=== PATIENT | female | born 1940 | race Caucasian/White ===

== ENCOUNTER 2016-09-25 13:36 | Inpatient (IN) ==
[2016-09-25] MEDS ORDERED: DILTIAZEM 50 MG/10 ML VIAL IV ONE (14:18)
[2016-09-25] MEDS: DILTIAZEM INJ 100 MG in SODIUM CHLORIDE 0.9% 100 ML IV SCH (14:23)
[2016-09-25] MEDS ORDERED: SODIUM CHLORIDE 0.9% 100 ML IV ONE (14:23)
[2016-09-25] MEDS ORDERED: DILTIAZEM 100 MG VIAL.ADD IV ONE (14:23)
[2016-09-25] MEDS ORDERED: ENOXAPARIN 80 MG/0.8 ML SYRINGE SUBCUT STA (14:28)
--- NOTE | 2016-09-25 14:28 | XRay Report ---
Portable chest Date: 09/25/2016 Clinical history: Shortness of breath, new onset of atrial fibrillation Comparison: 09/25/2016 Technique: Portable AP sitting chest Findings: The heart is minimally enlarged. Minimal diffuse perihilar parenchymal findings are noted with prominent vasculature. Osteopenia with degenerative changes. Postoperative findings in the left upper quadrant. Impression: Cardiomegaly with borderline/mild CHF. PROCEDURE INTERPRETED AT [facility], [place] DEPARTMENT OF RADIOLOGY Final Report Signed by: Dr. Natalya Cardenas
[2016-09-25 14:31] LABS: Basophils # 0.1 10*3/uL (0.0-0.2); Basophils % 0.7 % (0.0-0.8); Eosinophils # 0.4 10*3/uL (0.0-0.87); Eosinophils % 4.1 % (0.00-10.9); Hematocrit 42.9 VOL% (35.7-47.0); Hemoglobin 13.9 GM/DL (12.0-16.0); Immature Granulocytes % 0.3 %; Immature Granulocytes Absolute 0.03 #; Lymphocytes # 2.4 10*3/uL (1.4-4.0); Lymphocytes % 26.2 % (21.3-54.2); Mean Corpuscular HGB Conc 32.4 GM/DL (32-36); Mean Corpuscular Hemoglobin 27 PG (27-34); Mean Corpuscular Volume 82.3 FL (87-102); Monocytes # 0.7 10*3/uL (0.11-0.8); Monocytes % 7.2 % (1.7-12.7); Neutrophils # 5.6 10*3/uL (1.4-7.4); Neutrophils % 61.5 % (38.7-73.9); Platelet Count 299 T/CUMM (130-400); Red Blood Count 5.21 MC/CUMM (3.8-5.5); Red Cell Distribution Width 15.7 % (9.3-17.3); White Blood Count 9.1 T/CUMM (4-12)
[2016-09-25 14:47] LABS: Alanine Aminotransferase 16 U/L (13-56); Albumin 3.5 G/DL (3.4-5.0); Alkaline Phosphatase 80 U/L (45-117); Aspartate Amino Transferase 21 U/L (0-37); Blood Urea Nitrogen 9 MG/DL (7-18); Glucose 103 MG/DL (74-106); Magnesium 2.2 MG/DL (1.8-2.4); Osmolality,Calculated 279.3 MOS/KG (273-304); Potassium 4.5 MMOL/L (3.5-5.1); Sodium 141 MMOL/L (136-145); Total Protein 6.7 G/DL (6.4-8.3); Troponin I Only < 0.015 NG/ML (0.00-0.045)
--- NOTE | 2016-09-25 14:50 | Emergency Department Note ---
Arrival - Arrival Chief Complaint: Arrhythmia/Palpitations Stated Complaint: afib, sent by dr. MORALES Nursing Triage Note: c/o being evaluated today by Kiley Saeed for espohagus problems., states that she was told that she had a new onset of A-Fib ,ekg obtained at time of triage Mode of Arrival: Ambulatory Limitations: No Limitations Source: Patient, Family, RN Notes Reviewed Time Seen by Provider: 09/25/16 14:25 - History of Present Illness HPI Narrative: The patient was seen today in the clinic for what was presumed to be an esophagus problem. She was found to be in atrial fibrillation and was sent here. Patient has a history of gastric bypass many years ago and has had a esophagus spasm problems since then. For 3 weeks she has had a fluttering feeling in her chest which she presumed was her esophagus. She has also had increased dyspnea on exertion and some swelling in her lower extremities. She denies any chest pain, nausea, vomiting or diaphoresis. She has no history of CHF, CAD or atrial fibrillation. She was seen by Dr. Langley several years ago and had a stress test which was negative. She does have a history of a heart murmur. Allergies/Adverse Reactions: Allergies Allergy/AdvReac Type Severity Reaction Status Date / Time codeine Allergy RASH Verified 09/25/16 13:52 [place] Allergy RASH Verified 09/25/16 13:52 Home Medications: Home Medications Medication Instructions Recorded Confirmed Type Amoxicillin 500 mg PO TID 09/25/16 09/25/16 History Anastrozole 1 mg PO DAILY 09/25/16 09/25/16 History Aspirin EC Tab 81 mg PO DAILY 09/25/16 09/25/16 History Brimonidine 0.2% Oph Soln 1 drop BOTH EYES BID 09/25/16 09/25/16 History [Alphagan P 0.2% Oph Soln] Calcium Carbonate 600 mg PO BID 09/25/16 09/25/16 History Celecoxib [Celebrex] 200 mg PO DAILY 09/25/16 09/25/16 History Cinnamon Bark [Cinnamon] 500 mg PO BID 09/25/16 09/25/16 History Cyanocobalamin (Vitamin B-12) 2,500 mcg PO DAILY 09/25/16 09/25/16 History [Vitamin B12] Dexlansoprazole [Dexilant] 60 mg PO DAILY 09/25/16 09/25/16 History Esomeprazole Magnesium [Nexium] 20 mg PO DAILY 09/25/16 09/25/16 History Gluc Vaughan/Chondro Vaughan A/Vit C/Mn 1 each PO DAILY 09/25/16 09/25/16 History [Glucosamine Chondroitin Tab] Lisinopril [Prinivil] 20 mg PO DAILY 09/25/16 09/25/16 History Methylcellulose Tab [Citrucel Tab] 1 tablet PO BID 09/25/16 09/25/16 History NIFEdipine [Nifedipine ER] 30 mg PO DAILY 09/25/16 09/25/16 History [place]-3S/Dha/Epa/Fish Oil [Fish 1 each PO DAILY 09/25/16 09/25/16 History Oil 1,200 mg Softgel] Ranitidine Tab [Zantac Tab] 150 mg PO DAILY 09/25/16 09/25/16 History Temazepam 15 mg PO BEDTIME 09/25/16 09/25/16 History Timolol Maleate [Timolol 0.25% Oph 1 drop BOTH EYES BID 09/25/16 09/25/16 History Soln] Travoprost 0.004% Oph Soln 1 drop BOTH EYES BEDTIME 09/25/16 09/25/16 History [Travatan Z] Vitamin E 400 unit PO DAILY 09/25/16 09/25/16 History Review of System - Review of System 12 point system: reviewed and no additional remarkable complaints except as stated - Review of System Constitutional: Absent: diaphoresis, fever, weakness Head/Ears/Nose/Throat: Present: other ("Sinus congestion). Absent: nasal drainage, sore throat Respiratory: Present: cough. Absent: respiratory distress, wheezing Cardiovascular: Present: palpitations, dyspnea on exertion, edema. Absent: chest pain, orthopnea, syncope Gastrointestinal: Absent: abdominal pain, nausea, vomiting Neurological: Present: headache Medical,Surgical,& Family Hx - Medical History Cardio: History of: Hypertension Gastrointestinal: History of: GERD Reproductive: History of: Breast Cancer - Surgical History Abdominal Surgeries: Surgical HX of: Abdominal Surgery (Gastric bypass) Reproductive Surgeries: Surgical HX of;: Breast Surgery Orthopedic Surgeries: Surgical HX of;: Total Hip Replacement, Total Knee Replacement - Family History Family History: Reports;: Family Heart Disease (Brother with atrial fibrillation ) - Social History Smoking Status: Never smoker Frequency of Alcohol Use: None Type of Drug Use: None Exam Physical Examination: GENERAL: Alert. No acute distress. HEENT: Normocephalic and atraumatic. There is no nasal drainage. No pharyngeal erythema or exudate. NECK: Normal inspection. Supple. No lymphadenopathy or meningismus. LUNGS: No respiratory distress. Clear to auscultation bilaterally, no wheezes, rales or rhonchi. HEART: Irregularly irregular tachycardia. 2 out of 6 systolic murmur. ABDOMEN: Soft, nontender and nondistended with normoactive bowel sounds. BACK: Normal inspection. SKIN: Color normal. Warm and dry. EXTREMITIES: Nontender. Normal range of motion. No pedal edema. NEUROLOGICAL/PSYCHIATRIC: Alert and oriented -3 with normal mood and affect. Cranial nerves normal. No motor or sensory deficit. Vital Signs: Vital Signs Temperature 97.7 F 09/25/16 14:44 Pulse Rate 117 H 09/25/16 14:44 Respiratory Rate 18 09/25/16 14:44 Blood Pressure 123/98 09/25/16 14:44 O2 Sat by Pulse Oximetry 97 09/25/16 13:47 Course - Reevaluation(s) Reevaluation #1: The patient feels much better after diltiazem. Her rate is still around 115. Enzymes are negative. BNP is 131 and x-ray shows mild CHF. I have discussed patient with Dr. Lua and will admit to him. We will keep her n.p.o. after midnight for possible cardioversion in the morning. Time: 18:26 Results - Labs CBC & BMP: 09/25/16 14:16 09/25/16 14:16 Lab Results: I have reviewed the patients labs Labs: Laboratory Tests 09/25/16 14:16 Magnesium 2.2 Total Bilirubin 0.50 AST 21 ALT 16 Alkaline Phosphatase 80 Total Creatine Kinase 67 CK-MB (CK-2) 1.6 Troponin I < 0.015 Laboratory Tests 09/25/16 14:16 B-Natriuretic Peptide 191 H - Impressions Chest x-ray shows cardiomegaly with mild CHF. EKG shows atrial fibrillation with RVR at 146. Disposition Clinical Impression: Atrial fibrillation Case discussed with: patient Disposition: Still a Patient Condition: Stable Time of Disposition: 18:27
--- NOTE | 2016-09-25 15:25 | EKG Report ---
Stationary ECG Study [facility] ER Test Date: 09/25/2016 1:50:14 PM Pat Name: LISETTE WOODS Department: Room: Gender: F International Recruiter: Ciro John : 1940 Requested by: Caty Celeste Order Number: [id number] Reading MD: ANNALEE CHO Intervals [place] Rate: 146 P: 999 VA: 0 QRS: -48 QRSD: 91 T: 46 QT: 296 QTc: 380 Interpretive Statements ATRIAL FIBRILLATION WITH RAPID VENTRICULAR RESPONSE CONSISTENT WITH PULMONARY DISEASE MINIMAL ST DEPRESSION Electronically Signed On 09-25-16 19:29:06 CDT by ANNALEE CHO [email or web address]
[2016-09-25] MEDS ORDERED: ENOXAPARIN 80 MG/0.8 ML SYRINGE SUBCUT ONE (16:42)
[2016-09-25] MEDS ORDERED: MAGNESIUM SULF RIDER 2 GM in PREMIX 1 EACH IV PRN (20:54)
[2016-09-25] MEDS ORDERED: ONDANSETRON 4 MG/2 ML VIAL IV PRN (20:54)
[2016-09-25] MEDS ORDERED: MAGNESIUM SULF RIDER 4 GM in PREMIX 1 EACH IV PRN (20:54)
[2016-09-25] MEDS: ACETAMINOPHEN 500 MG TABLET PO PRN (22:58)
[2016-09-25] MEDS: ZALEPLON 5 MG CAPSULE PO PRN (22:58)
[2016-09-26] MEDS ORDERED: ENOXAPARIN 100 MG/ML SYRINGE SUBCUT SCH (05:00)
[2016-09-26] MEDS: DILTIAZEM INJ 100 MG in SODIUM CHLORIDE 0.9% 100 ML IV SCH (05:03)
[2016-09-26] MEDS: ACETAMINOPHEN 500 MG TABLET PO PRN (06:06)
--- NOTE | 2016-09-26 08:11 | EKG Report ---
Stationary ECG Study [facility] Test Date: 09/26/2016 8:10:26 AM Pat Name: LISETTE WOODS Department: Room: 263 Gender: F Staff Trainer: PRICILLA : 1940 Requested by: Whit Gaytan Order Number: [id number] Reading MD: EUN FLORES Intervals [place] Rate: 115 P: 999 NM: 0 QRS: 28 QRSD: 94 T: -33 QT: 369 QTc: 437 Interpretive Statements ATRIAL FIBRILLATION WITH RAPID VENTRICULAR RESPONSE INDETERMINATE AXIS LOW QRS VOLTAGE IN PRECORDIAL LEADS POSSIBLE ANTERIOR MYOCARDIAL INFARCTION, PROBABLY OLD ABNORMAL RHYTHM ECG Electronically Signed On 09-26-16 14:02:34 CDT by EUN FLORES [email or web address]
--- NOTE | 2016-09-26 08:19 | Cardiology History & Physical ---
Assessment and Plan - Time spent with patient Time spent with patient: Greater than 30 minutes (1) New onset atrial fibrillation Status: Acute Assessment and plan: See plan of care listed below. Current Visit: Yes (2) Congestive heart failure Status: Acute Assessment and plan: See plan of care listed below. Current Visit: Yes Qualifiers: Congestive heart failure type: diastolic Congestive heart failure chronicity: acute Qualified Code(s): I50.31 - Acute diastolic (congestive) heart failure (3) Hypertension Status: Chronic Assessment and plan: See plan of care listed below. Current Visit: Yes (4) History of breast cancer Status: Chronic Assessment and plan: See plan of care listed below. Current Visit: Yes (5) Obesity Status: Chronic Assessment and plan: See plan of care listed below. Current Visit: Yes (6) Former smoker Status: Chronic Assessment and plan: See plan of care listed below. Current Visit: Yes (7) Sleep apnea, unspecified Status: Chronic Assessment and plan: See plan of care listed below. Current Visit: Yes History of Present Illness Chief complaint: New onset A. fib History of present illness: Web Sizer: Ms. Abdullahi is a 75 year old female without known history of coronary artery disease, not routinely followed by cardiology. Patient has cardiac risk factors significant for hypertension, advanced age, obesity, sedentary lifestyle and former smoker (quit in 1983). Patient denies significant family history of coronary artery disease. Patient has past medical history of GERD, esophageal spasm, breast cancer (now in remission) and gastric bypass 30 years ago. Patient reports that she had seen Dr. Jason Langley several years ago in underwent cardiac stress test approximately 3 years ago which was normal per her report. No report found in EMR. Patient reports that she has never undergone heart catheterization. Patient was seen by nurse practitioner in the clinic yesterday. She was noted to be in an irregular rhythm with rapid ventricular response. Subsequently, she was sent to the emergency department to be further evaluated. She reports a heart fluttering and palpitations for at least 2 months. She does have a history of esophageal spasm and she thought this was causing the fluttering in her chest. However, she was noted to be in an irregular rhythm yesterday all being seen by a RAILROAD COOK in the clinic. Accompanied with shortness of breath and dyspnea on exertion. She also confirms orthopnea, PND and lower extremity edema. She denies accompanied chest pain, heaviness and tightness. She reports that she does not have any contraindications to anticoagulation. On arrival to the emergency department, patient was noted to be in atrial fibrillation with rapid ventricular response. Subsequently, she was admitted under cardiology's service and housed on the telemetry unit. Of note, patient does have symptoms concerning for obstructive sleep apnea. She confirms loud snoring. Her and her can no longer sleep in the same room due to her snoring. She is also obese and confirms excessive daytime sleepiness. I will consult Dr. White to further evaluate this. Patient was seen and examined on the telemetry unit. She continues to be in atrial fibrillation. Currently on diltiazem drip at 15 mg an hour. Heart rate is stable ranging from 100-110. She is without complaints of chest pain, heaviness and tightness. She reports that her shortness of breath has slightly improved. Cardiac biomarkers have been negative 1. EKG reveals atrial fibrillation. Chest x-ray reveals cardiomegaly with mild CHF. BNP only mildly elevated at 191. Echocardiogram has been ordered and is currently pending. Electrolytes are stable with magnesium of 2.2 and potassium of 4.5. This is new onset atrial fibrillation. From patient's history, it appears that patient has been going in and out of this irregular rhythm for a couple of months now. Currently receiving IV diltiazem. Rate is stable ranging from 100-110. I will attempt to transition patient to p.o. diltiazem today. Add beta blockade when her blood pressure will allow. She denies any contraindications to anticoagulation. Chads vasc score of 4. Patient will need chronic anticoagulation at discharge. She received therapeutic dose of Lovenox in the emergency department. Continue aspirin. I will discuss with Dr. Lua and await his additional recommendations. ASSESSMENT/PLAN 1. NEW ONSET ATRIAL FIBRILLATION - This is new onset atrial fibrillation. Electrolytes are stable. Will check TSH and free T4. From patient's history, it appears that patient has been going in and out of this irregular rhythm for a couple of months now. Currently receiving IV diltiazem. Rate is stable ranging from 100-110. I will attempt to transition patient to p.o. diltiazem today. Add beta blockade when her blood pressure will allow. She denies any contraindications to anticoagulation. Chads vasc score of 4. Patient will need chronic anticoagulation at discharge. She received therapeutic dose of Lovenox in the emergency department. Continue aspirin. I will discuss with Dr. Lua and await his additional recommendations. 2. ACUTE CONGESTIVE HEART FAILURE - Suspect that this is secondary to diastolic dysfunction/underlying atrial fibrillation with rapid ventricular response. Echocardiogram is pending. At this point, I will add IV Lasix. Monitor strict I's and O's and daily weights. Patient may require further cardiac workup pending the results of her echocardiogram. I will discuss with Dr. Lua and await his additional recommendations. 3. HYPERTENSION -clinically stable at present. I will adjust her medications in order to provide better coverage for her high blood pressure as well as atrial fibrillation. I will change Procardia to diltiazem and attempt to add beta blockade when her blood pressure will allow. 4. OBESITY - I have encouraged weight loss by dietary restriction and regular exercise. 5. FORMER SMOKER - Reports that she quit smoking in 1983. 6. GERD - Continue PPI. 7. HISTORY OF BREAST CANCER - Stable at present. Now in remission. 8. POSSIBLE SLEEP APNEA - Patient does have symptoms concerning for obstructive sleep apnea. This could very wel be contributing to her underlying l s atrial fibrillation. He confirms loud snoring. Her and her can no longer sleep in the same room due to her snoring. She is also obese and confirms excessive daytime sleepiness. I will consult Dr. White to further evaluate this. Home Medications Medication Instructions Recorded Confirmed Type Anastrozole 1 mg PO DAILY 09/25/16 09/25/16 History Aspirin EC Tab 81 mg PO DAILY 09/25/16 09/25/16 History Brimonidine 0.2% Oph Soln 1 drop BOTH EYES BID 09/25/16 09/25/16 History [Alphagan P 0.2% Oph Soln] Calcium Carbonate 600 mg PO BID 09/25/16 09/25/16 History Celecoxib [Celebrex] 200 mg PO DAILY 09/25/16 09/25/16 History Cinnamon Bark [Cinnamon] 500 mg PO BID 09/25/16 09/25/16 History Cyanocobalamin (Vitamin B-12) 2,500 mcg PO DAILY 09/25/16 09/25/16 History [Vitamin B12] Dexlansoprazole [Dexilant] 60 mg PO DAILY 09/25/16 09/25/16 History Gluc Vaughan/Chondro Vaughan A/Vit C/Mn 1 each PO DAILY 09/25/16 09/25/16 History [Glucosamine Chondroitin Tab] Lisinopril [Prinivil] 20 mg PO DAILY 09/25/16 09/25/16 History Methylcellulose Tab [Citrucel Tab] 1 tablet PO BID 09/25/16 09/25/16 History NIFEdipine [Nifedipine ER] 30 mg PO DAILY 09/25/16 09/25/16 History [place]-3S/Dha/Epa/Fish Oil [Fish 1 each PO DAILY 09/25/16 09/25/16 History Oil 1,200 mg Softgel] Temazepam 15 mg PO BEDTIME 09/25/16 09/25/16 History Timolol Maleate [Timolol 0.25% Oph 1 drop BOTH EYES BID 09/25/16 09/25/16 History Soln] Travoprost 0.004% Oph Soln 1 drop BOTH EYES BEDTIME 09/25/16 09/25/16 History [Travatan Z] Vitamin E 400 unit PO DAILY 09/25/16 09/25/16 History Allergies Allergy/AdvReac Type Severity Reaction Status Date / Time codeine Allergy RASH Verified 09/25/16 13:52 [place] Allergy RASH Verified 09/25/16 13:52 - Constitutional Constitutional: Present: as per HPI, daytime sleepiness, fatigue. Absent: chills, fever(s), weakness - Cardiovascular Cardiovascular: Present: as per HPI, dyspnea, dyspnea on exertion, edema, orthopnea, palpitations, PND. Absent: chest pain at rest, chest pain with activity, claudication, diaphoresis, radiating jaw, neck or arm pain, lightheadedness - Respiratory Respiratory: Present: as per HPI, dyspnea, dyspnea on exertion, wheezing, snoring. Absent: hemoptysis, pain on inspiration, change in phlegm color - Neurological Neurological: Absent: abnormal gait, abnormal speech, behavioral changes, dizziness, syncope Medical,Surgical,& Family Hx - Medical History Cardio: History of: Hypertension Gastrointestinal: History of: GERD Reproductive: History of: Breast Cancer - Surgical History Abdominal Surgeries: Surgical HX of: Abdominal Surgery (Gastric bypass) Reproductive Surgeries: Surgical HX of;: Breast Surgery Orthopedic Surgeries: Surgical HX of;: Total Hip Replacement, Total Knee Replacement - Social History Smoking Status: Former smoker Frequency of Alcohol Use: None Type of Drug Use: None Marital Status: Lives With:: Spouse Functional capacity: independent ambulation Cardiology Physical Exam - Constitutional Vitals: Vital Signs Temp Pulse Resp BP Pulse Ox 97.6 F 78 20 119/92 97 09/26/16 08:00 09/26/16 08:00 09/26/16 08:00 09/26/16 08:00 09/26/16 08:00 Intake and Output 09/25/16 09/26/16 09/26/16 22:59 06:59 14:59 Intake Total 360 / 360 100.0 / 100.0 Output Total 350 / 350 Balance 360 / 360 -250.0 / -250.0 Intake: IV 0 / 0 100.0 / 100.0 Cardizem Inj 100 mg In Ns 0 / 0 100.0 / 100.0 100 ml @ 5 MG/HR 5 mls/ hr IV TITRATE DOLLY Rx#: [id number] Oral 360 / 360 Output: Urine 350 / 350 Other: Voiding Method Toilet Toilet # Voids 1 # Bowel Movements 0 0 Weight 215 lb 215 lb Exam: General: Appears well with no apparent distress. Pleasant and cooperative. Appears comfortable. HEENT: PERRL, normocephalic, atraumatic. Mucous membranes moist. No jaundice noted. Conjunctiva moist and clear, sclerae anicteric Neck: No JVD/HJR, no thyromegaly or lymphadenopathy noted. Cardiac: Irregular rhythm. Soft systolic murmur Lungs: Clear to auscultation without accessory muscle use to assist the respiratory pattern. Oxygen via nasal cannula Abdomen: Soft, bowel sounds normoactive. Nontender and nondistended. No abdominal bruit or thrill noted. No masses noted. Extremities: No clubbing, cyanosis noted. Trace edema to bilateral lower extremity. Upper extremity pulses 2+. Lower extremity pulses 2+. Capillary refill less than 3 seconds. Skin: No unusual lesions or rashes. No skin breakdown appreciated. Neuro: Awake, alert and oriented 3. Moves all extremities well without hemiparesis or paralysis. No essential tremor is appreciated. Result/EKG - Labs CBC & BMP: 09/25/16 14:16 09/25/16 14:16 Lab Results: I have reviewed the past 24 hour labs Labs: Laboratory Results - last 24 hr 09/25/16 09/25/16 09/25/16 14:16 14:16 14:16 WBC 9.1 RBC 5.21 Hgb 13.9 Hct 42.9 MCV 82.3 L MCH 27 MCHC 32.4 RDW 15.7 Plt Count 299 MPV 10.0 Neut % (Auto) 61.5 Lymph % (Auto) 26.2 [place] % (Auto) 7.2 Eos % (Auto) 4.1 Baso % (Auto) 0.7 Neut # (Auto) 5.6 Lymph # (Auto) 2.4 [place] # (Auto) 0.7 Eos # (Auto) 0.4 Baso # (Auto) 0.1 Immature Gran % 0.3 Nucleated RBC % 0.0 Immature Gran # 0.03 Nucleated RBCs # 0.00 Immature Plt Fraction 0.0 Sodium 141 Potassium 4.5 Chloride 110 H Carbon Dioxide 24 Anion Gap 11.5 BUN 9 Creatinine 0.60 GFR Calculation 105 BUN/Creatinine Ratio 15.00 Glucose 103 Calculated Osmolality 279.3 Calcium 9.0 Magnesium 2.2 Total Bilirubin 0.50 AST 21 ALT 16 Alkaline Phosphatase 80 Total Creatine Kinase 67 CK-MB (CK-2) 1.6 Troponin I < 0.015 B-Natriuretic Peptide 191 H Total Protein 6.7 Albumin 3.5 Globulin 3.2 Albumin/Globulin Ratio 1.0 L - EKG EKG results: interpreted by me EKG shows: atrial fibrillation
[2016-09-26] MEDS ORDERED: NON-FORMULARY MEDICATION (Dexlansoprazole [Dexilant] 60 MG) PO SCH (09:00)
[2016-09-26] MEDS ORDERED: GLUCOSAMINE 500 MG TABLET PO SCH (09:00)
[2016-09-26] MEDS ORDERED: FUROSEMIDE 40 MG/4 ML VIAL IV SCH ×2 (09:00→16:00)
[2016-09-26] MEDS ORDERED: DIAZEPAM 5 MG TABLET PO ONE (09:23)
[2016-09-26] MEDS ORDERED: ceFAZolin 1,000 MG VIAL IRRIG ONE (09:23)
[2016-09-26] MEDS ORDERED: diphenhydrAMINE CAP 25 MG CAPSULE PO ONE (09:23)
[2016-09-26] MEDS: ASPIRIN EC 81 MG TABLET PO SCH (09:37)
[2016-09-26] MEDS ORDERED: HEPARIN/NACL 0.9% 2 UNITS/ML 500 ML IV ONE (09:39)
[2016-09-26] MEDS ORDERED: LIDOCAINE 1% 20 ML VIAL ONE ×2 (09:39→10:44)
[2016-09-26] MEDS ORDERED: ceFAZolin 1,000 MG VIAL ONE (09:40)
[2016-09-26 09:53] LABS: INR 1.1; PT Patient Result 11.4 SECS; Partial Thromboplastin Time 28.1 SECS (0-40)
[2016-09-26] MEDS ORDERED: MIDAZOLAM 2 MG/2 ML VIAL ONE ×2 (10:08→11:35)
[2016-09-26] MEDS ORDERED: fentaNYL 100 MCG/2 ML VIAL ONE ×2 (10:09→11:35)
[2016-09-26 10:21] LABS: Troponin I Only < 0.015 NG/ML (0.00-0.045)
[2016-09-26 10:27] LABS: Free T4 (Free Thyroxine) 1.32 NG/DL (0.76-1.46); Thyroid Stimulating Hormone 1.05 uIU/ml (0.358-3.74)
--- NOTE | 2016-09-26 10:37 | ECHO Report ---
Neetu Abdullahi Exam Date: 09/26/2016 08:14 Referring Physician: Technologist: neeraj Simms ARDMS, RVT Age: 75 Ht (in): 64 Wt (lb): 214 Gender: F Exam Location: [facility] Echo Indications: Palpitations, Atrial fibrillation, Essential (primary) hypertension, hx Breast CA, GERD BP: 115 / 75 HR: 109 Rhythm: Atrial fibrillation Technical Quality: IMPRESSIONS Normal left ventricular cavity size. Mild left ventricular hypertrophy. Normal systolic function, estimated left ventricular ejection fraction 55%. Grade 3 diastolic dysfunction. Mild right atrial and moderate left atrial enlargement. Mild mitral annular calcification, with mild mitral insufficiency, without stenosis. Aortic valve sclerosis, with borderline stenosis, calculated valve area 1.5 cm. No aortic valve regurgitation. Moderate pulmonary hypertension, with moderate tricuspid regurgitation. MEASUREMENTS (Male / Female) Normal Values 2D ECHO LV Diastolic Diameter PLAX 4.0 cm 4.2 - 5.9 / 3.9 - 5.3 cm LV Systolic Diameter PLAX 3.0 cm LV Fractional Shortening PLAX 24.4 % IVS Diastolic Thickness 1.8 cm 0.6 - 1.0 / 0.6 - 0.9 cm LVPW Diastolic Thickness 1.4 cm 0.6 - 1.0 / 0.6 - 0.9 cm RV Internal Dim ED PLAX 3.5 cm Aortic Root Diameter 3.7 cm LA Systolic Diameter LX 4.6 cm 3.0 - 4.0 / 2.7 - 3.8 cm DOPPLER TR Peak Velocity 315.0 cm/s TR Peak Gradient 39.7 mmHg FINDINGS Left Ventricle Normal left ventricular cavity size. Mild left ventricular hypertrophy. Normal systolic function, estimated left ventricular ejection fraction 55%. Grade 3 diastolic dysfunction. Right Ventricle The right ventricle is normal in size and function. Right Atrium The right atrium is mildly enlarged. Left Atrium Moderately increased left atrial size. Mitral Valve Mild mitral annular calcification, with mild mitral insufficiency, without stenosis. Aortic Valve Aortic valve sclerosis, with borderline stenosis, calculated valve area 1.5 cm. No aortic valve regurgitation. Tricuspid Valve Morphologically normal tricuspid valve. Moderate tricuspid valve regurgitation. Tricuspid regurgitation velocities suggest a PAP of 50 mmHg. Pulmonic Valve Morphologically normal pulmonic valve. Trace pulmonary valve regurgitation. Pericardium Normal pericardium without effusion. Aorta Normal ascending aorta dimension. Behzad Lua (Electronically Signed) Final Date: 26 September 2016 10:36
--- NOTE | 2016-09-26 10:47 | History and Physical Update ---
Sedation H&P Update - History and Physical H&P was reviewed, the patient examined and there: are no changes in the patients condition since last H&P was completed. - Dictation Physical: refer to scanned H&P - Physical Exam Mental Status: alert and oriented Heart: other (tachybrady, irregular) Lung: clear to auscultation Abdomen: within normal limits Vitals: within normal limits - Sedation Plan for Sedation: moderate Patient Consent: Procedure disscussed with patient and patinet has consented., Risks and benefits were discussed with patient,including infection,, bleeding, injury to surrounding structures, seizure, temporary nerve, Patient understands and accepts potential risks/benefits and agrees to ASA Class: IV Airway Assessment: Class III: Soft palate, base of uvula visible
[2016-09-26] MEDS ORDERED: TISSUE ADHESIVE 1 EACH APPLICATOR TOP ONE (11:17)
[2016-09-26] MEDS ORDERED: DILTIAZEM 50 MG/10 ML VIAL IV ONE (11:29)
[2016-09-26] MEDS ORDERED: AMIODARONE 150 MG/3 ML VIAL ONE ×3 (11:39→11:54)
--- NOTE | 2016-09-26 12:23 | Cardiac Pacemaker ---
- Preoperative diagnosis Date of Procedure:: 09/26/16 Preoperative Diagnosis: Documented nonreversible symptomatic bradycardia due to , sinus node dysfunction Pre-op Diagnosis: SSS/PAF, conversion pauses Post-op diagnosis: same Procedure: PROCEDURE SUMMARY DDD pacemaker implant from left axillary vein access. PLAN Bed rest for 4 hours. Routine post pacemaker implant site care and activity restrictions. Do not remove pressure dressing until AM. Portable CXR, EKG stat. CXR PA/Lat, device interrogation in AM. Ancef 1g iv. q8h x2. Iv. amiodarone drip 0.5 mg/min until AM. Start Toprol XL 100 mg qd Start Eliquis 5 mg bid in AM PROCEDURE Informed consent was obtained and a timeout was performed prior to the procedure. The patient was continuously monitored by ECG, pulse oxymetry and NIBP. 1g iv. Ancef was administered prior to the procedure for antibiotic prophylaxis. Moderate conscious sedation was initiated and maintained with iv. Versed and Fentanyl, for 65 minutes. The left pectoral area was meticulously prepared with ChloroPrep surgical scrub. Sterile draping was applied and Ioban was used to cover the operation site. The image intensifier was draped with a sterile bag and positioned over the patient's chest. After infiltration with 1% lidocaine, an incision was made in the left infraclavicular area, parallel to the deltopectoral groove. The incision was carried down to the level of the pectoral fascia. A subcutaneous pocket was then created with electrocautery and blunt dissection. Hemostasis was then achieved with electrocautery. A micropuncture needle was used to access the left axillary vein under fluoroscopic guidance. The microfilament was used to introduce the micropuncture sheath, which the was used to introduce and advance a long hydrophylic guidewire into the inferior vena cava. A 9 Fr sheath was introduced over the guidewire. The dilator was removed. The right ventricular pacemaker lead was introduced through the sheath. The sheath was then peeled away. The curved stylet was used to move the lead into the right ventricular outflow tract. The stylet was then replaced with a straight stylet and the lead was moved into a stable position on the right ventricular septum. Adequate sensing and pacing threshold was confirmed. The active fixation mechanism was then deployed. Stable signal and pacing threshold was noted, with decrease in pacing impedance. No extracardiac stimulation was noted with high output pacing. The lead was then anchored to the subcutaneous tissue with 2-0 nonabsorbable suture, using the anchoring sleeve near the point of entry to the vein. Another 9 Fr sheath was introduced over the retained guidewire. The dilator was removed. The right atrial pacemaker lead was introduced through the sheath. The sheath was then peeled away. A straight stylet was used to move the lead into the right atrium. The stylet was then replaced with a curved J stylet and the lead was moved into a stable position in the right atrial appendage. Adequate sensing and pacing threshold was confirmed. The active fixation mechanism was then deployed. Stable signal and pacing threshold was noted, with decrease in pacing impedance. No extracardiac stimulation was noted with high output pacing. The lead was then anchored to the subcutaneous tissue with 2-0 nonabsorbable suture, using the anchoring sleeve near the point of entry to the vein. The retained guidewire was removed. The pacemaker generator was attached to the leads and sealed in the prescribed manner. The wound was flushed with Ancef . The generator was placed into the pocket and tied to the pectoral fascia using 2-0 nonabsorbable suture. Stable lead positions were confirmed with fluoroscopy. The wound was closed using a double layer of 2-0 absorbable Vicryl sutures, followed by a subcuticular running suture with 4-0 Monocryl, then Exofin. The patient remained in AF. 10 mg iv. cardizem, then 150 mg iv. amiodarone was administered. The rhythm converted to atrial paced. The lead parameters were then remeasured and the rhythm remained atrial paced. A sterile, then a pressure dressing was applied. The device was then interrogated and programmed as detailed below. Device Type SN Location Medtronic Advisa DR DDD pacemaker [id number] Left infraclavicular Lead Position Type SN P/R Threshold Impedance RA RA appendage Med[employer]onic 5076-52 [id number] 2.1 mV 1.0 V @ 0.5 ms 729 Ohm RV RV septum Med[employer]onic 5076-58 [id number] 5.1 mV 0.7 V @ 0.5 ms 1410 Ohm Bradycardia settings MVPR 60/120 The implanted system is MRI conditional. Anesthesia: moderate conscious sedation Surgeon / Physician: Behzad Lua Quotation Checker: other (Tomás) Estimated blood loss: minimal Specimens: none sent Condition: stable Disposition: floor - Medications / Follow-up
--- NOTE | 2016-09-26 12:36 | XRay Report ---
XR chest 1V portable Indication: Lead placement Comparison: 25 September 2016 Findings: The heart and mediastinum are stable in size and configuration. Pacemaker has been placed and leads appear in good position. The pulmonary vascularity is slightly increased with bilateral increased interstitial lung density. No other lung infiltrates, effusions, pneumothorax or other abnormality is demonstrated. Impression: Findings suggest mild cardiac decompensation. Pacemaker appears within normal limits. PROCEDURE INTERPRETED AT [facility] DEPARTMENT OF RADIOLOGY Final Report Signed by: Dr. Ham Ellis
[2016-09-26] MEDS: AMIODARONE INJ 450 MG in DEXTROSE 5% 241 ML IV SCH ×2 (13:37→18:48)
[2016-09-26] MEDS: ANASTROZOLE 1 MG TABLET PO SCH (13:49)
[2016-09-26] MEDS: CELECOXIB 200 MG CAPSULE PO SCH (13:49)
[2016-09-26] MEDS: VITAMIN E 400 UNIT CAPSULE PO SCH (13:49)
[2016-09-26] MEDS: CYANOCOBALAMIN 500 MCG TABLET PO SCH (13:49)
[2016-09-26] MEDS: OMEGA 3 ACID ETHYL ESTERS 1 GM CAPSULE PO SCH (13:50)
[2016-09-26] MEDS: GLUCOSAMINE 500 MG TABLET PO SCH (13:50)
[2016-09-26] MEDS: METOPROLOL SUCCINATE XL 100 MG TABLET PO SCH (13:54)
[2016-09-26] MEDS: BRIMONIDINE 0.2% OPH SOLN 5 ML BOTTLE BOTH EYES SCH ×3 (13:56→22:23)
[2016-09-26] MEDS: METHYLCELLULOSE 500 MG TABLET PO SCH ×2 (13:56→22:18)
[2016-09-26] MEDS: CALCIUM (CARBONATE) 600 MG TABLET PO SCH ×2 (13:56→22:17)
[2016-09-26] MEDS: PANTOPRAZOLE 40 MG TABLET PO SCH (13:56)
[2016-09-26] MEDS: TIMOLOL 0.25% OPH SOLN 5 ML BOTTLE BOTH EYES SCH ×3 (13:57→22:23)
--- NOTE | 2016-09-26 14:53 | EKG Report ---
Stationary ECG Study [facility] Test Date: 09/26/2016 2:54:04 PM Pat Name: LISETTE WOODS Department: Room: 263 Gender: F Senior Sales Engineer: PRICILLA : 1940 Requested by: Behzad Lua Order Number: [id number] Reading MD: GRIFFIN MONTALVO Intervals [place] Rate: 108 P: 999 VA: 0 QRS: -33 QRSD: 94 T: -26 QT: 328 QTc: 392 Interpretive Statements ATRIAL FIBRILLATION WITH RAPID VENTRICULAR RESPONSE at 108 bpm LEFT AXIS DEVIATION PATTERN CONSISTENT WITH PULMONARY DISEASE NST Electronically Signed On 09-26-16 15:36:13 CDT by GRIFFIN MONTALVO [id number]
[2016-09-26] MEDS: FUROSEMIDE 40 MG TABLET PO SCH (16:08)
[2016-09-26] MEDS: oxyCODONE/ACETAMINOPHEN 5-325 MG TABLET PO PRN ×2 (16:11→22:18)
--- NOTE | 2016-09-26 16:47 | Sleep Medicine Consult ---
Assessment and Plan (1) Sleep apnea, unspecified Status: Chronic Assessment and plan: With this patient's history of snoring and her comorbidities of atrial fibrillation and congestive heart failure, sleep evaluation is recommended. We are unable to do HST evaluation on her at this point due to her surgical changes after pacemaker placement. We will schedule her for outpatient polysomnography. Thank you for this consult. Current Visit: Yes (2) New onset atrial fibrillation Status: Acute Assessment and plan: The prevalence for obstructive sleep apnea patients with atrial fib can be as high as 80%. Treating these patients can lead to significant decrease in recurrence of A. fib almost 50%. Current Visit: Yes History of Present Illness Chief complaint: Sleep apnea History of present illness: Ms. Abdullahi is a 75 year old female admitted with atrial fibrillation and congestive heart failure. She is undergone pacemaker placement and consult was issued. She has a long history of loud snoring. She and her have not been sleeping together for over 4 years because of the loudness of her snoring. She has never been told that she stops breathing during her sleep. She usually retires between 10 and 11 and awakens each morning around 6. She likes to read at night before going to bed and does take a sleep aid to help her fall asleep. She does take a nap during the day. She denies sleepiness otherwise and has no difficulty staying awake in nondenominational. Home Medications Medication Instructions Recorded Confirmed Type Anastrozole 1 mg PO DAILY 09/25/16 09/25/16 History Aspirin EC Tab 81 mg PO DAILY 09/25/16 09/25/16 History Brimonidine 0.2% Oph Soln 1 drop BOTH EYES BID 09/25/16 09/25/16 History [Alphagan P 0.2% Oph Soln] Calcium Carbonate 600 mg PO BID 09/25/16 09/25/16 History Celecoxib [Celebrex] 200 mg PO DAILY 09/25/16 09/25/16 History Cinnamon Bark [Cinnamon] 500 mg PO BID 09/25/16 09/25/16 History Cyanocobalamin (Vitamin B-12) 2,500 mcg PO DAILY 09/25/16 09/25/16 History [Vitamin B12] Dexlansoprazole [Dexilant] 60 mg PO DAILY 09/25/16 09/25/16 History Gluc Vaughan/Chondro Vaughan A/Vit C/Mn 1 each PO DAILY 09/25/16 09/25/16 History [Glucosamine Chondroitin Tab] Lisinopril [Prinivil] 20 mg PO DAILY 09/25/16 09/25/16 History Methylcellulose Tab [Citrucel Tab] 1 tablet PO BID 09/25/16 09/25/16 History NIFEdipine [Nifedipine ER] 30 mg PO DAILY 09/25/16 09/25/16 History [place]-3S/Dha/Epa/Fish Oil [Fish 1 each PO DAILY 09/25/16 09/25/16 History Oil 1,200 mg Softgel] Temazepam 15 mg PO BEDTIME 09/25/16 09/25/16 History Timolol Maleate [Timolol 0.25% Oph 1 drop BOTH EYES BID 09/25/16 09/25/16 History Soln] Travoprost 0.004% Oph Soln 1 drop BOTH EYES BEDTIME 09/25/16 09/25/16 History [Travatan Z] Vitamin E 400 unit PO DAILY 09/25/16 09/25/16 History Allergies Allergy/AdvReac Type Severity Reaction Status Date / Time codeine Allergy RASH Verified 09/25/16 13:52 [place] Allergy RASH Verified 09/25/16 13:52 Review of systems: Otherwise unremarkable from a sleep standpoint. She does state that she had an issue with bedwetting as a child and got over this problem at age 14. Exam (Pulmonay) H&P - Constitutional Vitals: Period Temp Pulse Resp BP Sys/Garcia Pulse Ox Last 24 Hr 97.2 F-97.6 F 60-135 18-20 96-159/67-104 95-99 Exam: She is alert and responsive in no acute distress. Pupils equal round reactive to light and accommodation. Extraocular movements intact. Oropharynx with a class III Mallampati exam. Neck is supple without adenopathy or thyromegaly. Chest with good air movement bilaterally without focal wheeze or rhonchi. Cardiac exam reveals regular rhythm without murmur or gallop. Abdomen soft nontender without palpable hepatosplenomegaly or mass. Extremities without significant edema or clubbing. Neurologically, she is grossly intact. She answers all questions appropriately and moves all extremities with good strength. Medical,Surgical,& Family Hx - Medical History Cardio: History of: Hypertension Gastrointestinal: History of: GERD Reproductive: History of: Breast Cancer - Surgical History Abdominal Surgeries: Surgical HX of: Abdominal Surgery (Gastric bypass) Reproductive Surgeries: Surgical HX of;: Breast Surgery Orthopedic Surgeries: Surgical HX of;: Total Hip Replacement, Total Knee Replacement - Family History Family History: Reports;: Family Heart Disease (Brother with atrial fibrillation ) - Social History Smoking Status: Former smoker Frequency of Alcohol Use: None Type of Drug Use: None Results - Labs CBC & BMP: 09/25/16 14:16 09/25/16 14:16 Labs: TSH is normal
[2016-09-26 17:37] LABS: Troponin I Only 0.169 NG/ML (0.00-0.045)
[2016-09-26] MEDS: ZALEPLON 5 MG CAPSULE PO PRN (22:17)
[2016-09-26] MEDS: TRAVOPROST 0.004% OPH SOLN 2.5 ML BOTTLE BOTH EYES SCH ×2 (22:17→22:23)
[2016-09-27] MEDS: AMIODARONE INJ 450 MG in DEXTROSE 5% 241 ML IV SCH (03:36)
[2016-09-27 06:39] LABS: Basophils # 0.1 10*3/uL (0.0-0.2); Basophils % 0.5 % (0.0-0.8); Eosinophils # 0.3 10*3/uL (0.0-0.87); Eosinophils % 3.1 % (0.00-10.9); Hemoglobin 12.8 GM/DL (12.0-16.0); Immature Granulocytes % 0.4 %; Immature Granulocytes Absolute 0.04 #; Lymphocytes # 1.9 10*3/uL (1.4-4.0); Lymphocytes % 18.5 % (21.3-54.2); Mean Corpuscular HGB Conc 32.8 GM/DL (32-36); Mean Corpuscular Hemoglobin 27 PG (27-34); Mean Corpuscular Volume 82.6 FL (87-102); Mean Platelet Volume 10.5 FL (9.6-12.0); Monocytes # 0.6 10*3/uL (0.11-0.8); Monocytes % 5.9 % (1.7-12.7); Neutrophils # 7.1 10*3/uL (1.4-7.4); Neutrophils % 71.6 % (38.7-73.9); Platelet Count 232 T/CUMM (130-400); Red Blood Count 4.72 MC/CUMM (3.8-5.5); Red Cell Distribution Width 15.6 % (9.3-17.3)
[2016-09-27 07:07] LABS: Calcium 8.5 MG/DL (8.5-10.1); Magnesium 2.1 MG/DL (1.8-2.4); Osmolality,Calculated 281.4 MOS/KG (273-304); Potassium 4.7 MMOL/L (3.5-5.1)
[2016-09-27 07:08] LABS: Calcium 8.5 MG/DL (8.5-10.1); Magnesium 2.1 MG/DL (1.8-2.4); Osmolality,Calculated 277.7 MOS/KG (273-304); Potassium 4.4 MMOL/L (3.5-5.1)
[2016-09-27 07:16] LABS: Risk Ratio 4.8
--- NOTE | 2016-09-27 07:17 | EKG Report ---
Stationary ECG Study [facility] Test Date: 09/27/2016 7:17:55 AM Pat Name: LISETTE WOODS Department: Room: 263 Gender: F Carbonizer Tester: CONY : 1940 Requested by: Whit Gaytan Order Number: [id number] Reading MD: GRIFFIN MONTALVO Intervals [place] Rate: 98 P: 160 NC: 210 QRS: -16 QRSD: 98 T: 2 QT: 373 QTc: 428 Interpretive Statements ELECTRONIC ATRIAL PACEMAKER at 90 bpm NST Electronically Signed On 09-27-16 08:02:10 CDT by GRIFFIN MONTALVO [email or web address]
--- NOTE | 2016-09-27 07:47 | Discharge Summary ---
Hospital Course - Hospital Course Hospital Course: Ms. Abdullahi is a 75-year-old female patient, who was admitted with highly symptomatic paroxysmal atrial fibrillation, with conversion pauses. After discussing risks and benefits of management options, a dual-chamber pacemaker was implanted in conscious sedation. IV amiodarone was used for rhythm control. Post pacer implant, she was mostly atrial paced, with frequent, shorter bursts of asymptomatic paroxysmal atrial fibrillation. Chest x-ray confirmed normal lead positions, device interrogation is pending. -Discussed post pacemaker implant activity limitations and implant site care. -Follow-up with Dr. Lua in 1 week. -For now, we will continue amiodarone 200 mg twice daily for 1 week, then cut back to 200 mg daily. -Sleep evaluation is planned as an outpatient. History of severe snoring. If she does have treatable sleep apnea, that may improve rhythm control significantly. As her arrhythmia was very frequent and symptomatic, I plan to continue amiodarone short-term, then plan to de-escalate antiarrhythmic treatment. -Continue Toprol-XL 100 mg daily -Anticoagulation was started with Eliquis. Diagnosis - Discharge Diagnosis (1) Atrial fibrillation Status: Acute (2) Hypertension Status: Chronic (3) History of breast cancer Status: Chronic (4) Former smoker Status: Chronic (5) Sleep apnea, unspecified Status: Chronic Discharge Plan - Discharge Data Disposition: Disch To Home/Self Care Condition at Discharge: Stable Discharge Diet: advance to your usual diet Activity: resume usual activities as tolerated Hygiene: keep area(s) dry Weight Bearing at Discharge: full weight bearing Driving: not until seen by doctor Contact your physician if you experience:: fever over 101, Difficulty voiding, Redness or swelling, Nausea/Vomiting, Shortness of breath, Bleeding, pain uncontrolled by pain medications - Discharge Medications New Amiodarone Tab [Cordarone Tab] 200 mg PO BID #180 tablet Apixaban [Eliquis] 5 mg PO BID #60 tablet Furosemide Tab [Lasix Tab] 20 mg PO DAILY #30 tablet oxyCODONE/ACETAMINOPHEN 5-325 [Percocet 5-325] 1 tablet PO Q4H PRN #10 tablet PRN Reason: Pain Moderate (4-7) Metoprolol Succinate Xl [Toprol Xl] 100 mg PO DAILY #90 tablet Continue Anastrozole 1 mg PO DAILY Aspirin EC Tab 81 mg PO DAILY Calcium Carbonate 600 mg PO BID Celecoxib [Celebrex] 200 mg PO DAILY Cinnamon Bark [Cinnamon] 500 mg PO BID Cyanocobalamin (Vitamin B-12) [Vitamin B12] 2,500 mcg PO DAILY Gluc Vaughan/Chondro Vaughan A/Vit C/Mn [Glucosamine Chondroitin Tab] 1 each PO DAILY Lisinopril [Prinivil] 20 mg PO DAILY NIFEdipine [Nifedipine ER] 30 mg PO DAILY [place]-3S/Dha/Epa/Fish Oil [Fish Oil 1,200 mg Softgel] 1 each PO DAILY Temazepam 15 mg PO BEDTIME Timolol Maleate [Timolol 0.25% Oph Soln] 1 drop BOTH EYES BID Travoprost 0.004% Oph Soln [Travatan Z] 1 drop BOTH EYES BEDTIME Vitamin E 400 unit PO DAILY Brimonidine 0.2% Oph Soln [Alphagan P 0.2% Oph Soln] 1 drop BOTH EYES BID Dexlansoprazole [Dexilant] 60 mg PO DAILY Methylcellulose Tab [Citrucel Tab] 1 tablet PO BID - Follow Up or Referral Follow Up: Behzad Lua MD [Physician] - 1 Week - Forms/Instructions Exam - Constitutional Vitals: Period Temp Pulse Resp BP Sys/Garcia Pulse Ox Last 24 Hr 96.7 F-97.6 F 60-106 16-20 98-146/63-105 92-97 General appearance: no acute distress, morbidly obese - Head Head exam: Present: normal inspection, normocephalic - Eye Eye exam: Absent: conjunctival injection, scleral icterus Pupils: Absent: dilated - ENT ENT exam: Present: normal external ear exam - Neck Neck exam: Present: normal inspection - Respiratory Respiratory exam: Present: clear to auscultation bilaterally - Cardiovascular Cardiovascular exam: Present: regular rate and rhythm. Absent: JVD - GI/Abdominal GI/Abdominal exam: Present: normal bowel sounds. Absent: distended - Extremities Exam Extremities exam: Present: normal inspection, normal capillary refill. Absent: edema - Back Exam Back exam: Present: normal inspection - Neurological Exam Neurological exam: Present: alert, oriented X3 - Psychiatric Psychiatric exam: Present: normal affect, normal mood - Skin Skin exam: Present: normal color, warm. Absent: cyanosis Discharge Results Procedures and tests throughout hospitalization: Pending Orders 09/27/16 04:00 XR chest 2V IN AM 09/28/16 04:00 BMP w/ Mg [Basic Metabolic Panel w/Mg] IN AM CBC [Comp Blood Count Auto Diff] IN AM 09/29/16 04:00 BMP w/ Mg [Basic Metabolic Panel w/Mg] IN AM CBC [Comp Blood Count Auto Diff] IN AM Labs on day of discharge: Labs from last 24 hours 09/27/16 09/27/16 09/27/16 05:54 05:54 05:53 WBC RBC Hgb Hct MCV MCH MCHC RDW Plt Count MPV Neut % (Auto) Lymph % (Auto) [place] % (Auto) Eos % (Auto) Baso % (Auto) Neut # (Auto) Lymph # (Auto) [place] # (Auto) Eos # (Auto) Baso # (Auto) Immature Gran % Nucleated RBC % Immature Gran # Nucleated RBCs # Immature Plt Fraction INR PT Patient/Control Mix Circ Anticoag PTT Sodium 140 138 Potassium 4.7 4.4 Chloride 108 H 108 H Carbon Dioxide 25 24 Anion Gap 11.7 10.4 BUN 17 17 Creatinine 0.60 0.60 GFR Calculation 105 105 BUN/Creatinine Ratio 28.00 H 28.00 H Glucose 119 H 122 H Calculated Osmolality 281.4 277.7 Calcium 8.5 8.5 Magnesium 2.1 2.1 Total Creatine Kinase CK-MB (CK-2) Troponin I Triglycerides 105 Cholesterol 192 LDL Cholesterol 134.0 VLDL Cholesterol 21.0 HDL Cholesterol 40 Heart Disease Risk Ratio 4.80 Free T4 TSH 3rd Generation 09/27/16 09/26/16 09/26/16 05:53 16:55 09:32 WBC 10.0 RBC 4.72 Hgb 12.8 Hct 39.0 MCV 82.6 L MCH 27 MCHC 32.8 RDW 15.6 Plt Count 232 D MPV 10.5 Neut % (Auto) 71.6 Lymph % (Auto) 18.5 L [place] % (Auto) 5.9 Eos % (Auto) 3.1 Baso % (Auto) 0.5 Neut # (Auto) 7.1 Lymph # (Auto) 1.9 [place] # (Auto) 0.6 Eos # (Auto) 0.3 Baso # (Auto) 0.1 Immature Gran % 0.4 Nucleated RBC % 0.0 Immature Gran # 0.04 Nucleated RBCs # 0.00 Immature Plt Fraction 0.0 INR 1.1 PT Patient/Control Mix 11.4 Circ Anticoag PTT 28.1 Sodium Potassium Chloride Carbon Dioxide Anion Gap BUN Creatinine GFR Calculation BUN/Creatinine Ratio Glucose Calculated Osmolality Calcium Magnesium Total Creatine Kinase 56 D CK-MB (CK-2) 1.4 Troponin I 0.169 H D Triglycerides Cholesterol LDL Cholesterol VLDL Cholesterol HDL Cholesterol Heart Disease Risk Ratio Free T4 TSH 3rd Generation 09/26/16 09/26/16 09:32 09:32 WBC RBC Hgb Hct MCV MCH MCHC RDW Plt Count MPV Neut % (Auto) Lymph % (Auto) [place] % (Auto) Eos % (Auto) Baso % (Auto) Neut # (Auto) Lymph # (Auto) [place] # (Auto) Eos # (Auto) Baso # (Auto) Immature Gran % Nucleated RBC % Immature Gran # Nucleated RBCs # Immature Plt Fraction INR PT Patient/Control Mix Circ Anticoag PTT Sodium Potassium Chloride Carbon Dioxide Anion Gap BUN Creatinine GFR Calculation BUN/Creatinine Ratio Glucose Calculated Osmolality Calcium Magnesium Total Creatine Kinase 45 D CK-MB (CK-2) 1.4 Troponin I < 0.015 Triglycerides Cholesterol LDL Cholesterol VLDL Cholesterol HDL Cholesterol Heart Disease Risk Ratio Free T4 1.32 TSH 3rd Generation 1.050 - Imaging and Cardiology Cardiology Procedure: image reviewed by me, report reviewed by me DS: Provider Date of admission: 09/25/16 18:28 Primary care physician: . No PCP Attending physician on admission: Behzad Lua MD Consults: 09/26/16 08:50 Consult to Physician [CONS] Routine Comment: possible sleep apnea Consulting Provider: Amber White 09/26/16 09:14 Consult to Sleep Center [CONS] Routine Reason for Sleep Center: Sleep Center Physician Discharging clinician: Behzad Lua MD Expected date of discharge: 09/27/16
[2016-09-27] MEDS ORDERED: APIXABAN 5 MG TABLET PO SCH (09:00)
[2016-09-27] MEDS ORDERED: AMIODARONE 200 MG TABLET PO SCH (09:00)
[2016-09-27] MEDS: ASPIRIN EC 81 MG TABLET PO SCH (09:42)
[2016-09-27] MEDS: CELECOXIB 200 MG CAPSULE PO SCH (09:42)
[2016-09-27] MEDS: ANASTROZOLE 1 MG TABLET PO SCH (09:42)
[2016-09-27] MEDS: FUROSEMIDE 40 MG TABLET PO SCH (09:43)
[2016-09-27] MEDS: PANTOPRAZOLE 40 MG TABLET PO SCH (09:44)
[2016-09-27] MEDS: METOPROLOL SUCCINATE XL 100 MG TABLET PO SCH (09:44)
[2016-09-27] MEDS: CALCIUM (CARBONATE) 600 MG TABLET PO SCH (09:44)
[2016-09-27] MEDS: OMEGA 3 ACID ETHYL ESTERS 1 GM CAPSULE PO SCH (09:44)
[2016-09-27] MEDS: VITAMIN E 400 UNIT CAPSULE PO SCH (09:44)
[2016-09-27] MEDS: CYANOCOBALAMIN 500 MCG TABLET PO SCH (09:44)
[2016-09-27] MEDS: METHYLCELLULOSE 500 MG TABLET PO SCH (09:45)
[2016-09-27] MEDS: TIMOLOL 0.25% OPH SOLN 5 ML BOTTLE BOTH EYES SCH (09:45)
[2016-09-27] MEDS: GLUCOSAMINE 500 MG TABLET PO SCH (09:45)
[2016-09-27] MEDS: BRIMONIDINE 0.2% OPH SOLN 5 ML BOTTLE BOTH EYES SCH (09:46)
--- NOTE | 2016-09-27 10:23 | XRay Report ---
XR chest 2V Indication: Lead placement Comparison: 26 September 2016 Findings: The heart and mediastinum are stable in size and configuration. Pacemaker is unchanged in appearance. The pulmonary vascularity is increased with bilateral increased interstitial lung density, appears slightly improved. No other lung infiltrates, effusions, pneumothorax or other abnormality is demonstrated. Impression: Findings suggest slight improvement of cardiac decompensation. PROCEDURE INTERPRETED AT [facility] DEPARTMENT OF RADIOLOGY Final Report Signed by: Dr. Ham Ellis
[2016-09-27 11:57] VITALS: BP 110/83
== END 2016-09-27 12:53 | disposition home or self-care (01) | DRG 242 ==
LOC: N.ED 13:36 → N.EDINP 18:28 → N.TELES 19:44
PROVIDERS: ADMIT Internal Medicine Clinical Cardiac Electrophysiology; ATTEND Internal Medicine Clinical Cardiac Electrophysiology

== ENCOUNTER 2016-10-12 12:16 | Observation (INO) ==
--- NOTE | 2016-10-12 12:50 | EKG Report ---
Stationary ECG Study [facility] Test Date: 10/12/2016 12:39:36 PM Pat Name: LISETTE WOODS Department: Room: Gender: F Space Systems Operations Manager: ERIC John : 1940 Requested by: Javier Callahan Order Number: [id number] Reading MD: ROSSY BRODERICK Intervals [place] Rate: 72 P: 150 MT: 181 QRS: -14 QRSD: 97 T: -60 QT: 392 QTc: 416 Interpretive Statements ATRIAL PACEMAKER Electronically Signed On 10-12-16 16:36:28 CDT by ROSSY BRODERICK [id number]
[2016-10-12 13:05] LABS: Basophils % 0.4 % (0.0-0.8); Eosinophils # 0.2 10*3/uL (0.0-0.87); Hematocrit 37.7 VOL% (35.7-47.0); Hemoglobin 12.3 GM/DL (12.0-16.0); Immature Granulocytes % 0.5 %; Immature Granulocytes Absolute 0.05 #; Lymphocytes # 1.8 10*3/uL (1.4-4.0); Lymphocytes % 19.7 % (21.3-54.2); Mean Corpuscular HGB Conc 32.6 GM/DL (32-36); Mean Corpuscular Hemoglobin 27 PG (27-34); Mean Corpuscular Volume 82.3 FL (87-102); Mean Platelet Volume 9.3 FL (9.6-12.0); Monocytes # 0.5 10*3/uL (0.11-0.8); Monocytes % 5.1 % (1.7-12.7); Neutrophils # 6.6 10*3/uL (1.4-7.4); Neutrophils % 72.3 % (38.7-73.9); Platelet Count 240 T/CUMM (130-400); Red Blood Count 4.58 MC/CUMM (3.8-5.5); Red Cell Distribution Width 15.5 % (9.3-17.3); White Blood Count 9.2 T/CUMM (4-12)
--- NOTE | 2016-10-12 13:36 | XRay Report ---
Chest, 2 views History is short of breath Comparison 10/09/2016 The heart is enlarged with pacemaker present Lung markings grossly similar on the prior study. No consolidated infiltrate is seen Clips present in the visualized left upper abdomen Impression: Cardiomegaly and chronic changes similar on the prior study PROCEDURE INTERPRETED AT [facility] DEPARTMENT OF RADIOLOGY Final Report Signed by: Dr. Christina Rg
[2016-10-12 13:43] LABS: Alanine Aminotransferase 24 U/L (13-56); Albumin 3.1 G/DL (3.4-5.0); Alkaline Phosphatase 74 U/L (45-117); Aspartate Amino Transferase 22 U/L (0-37); Bilirubin,Total < 0.39 MG/DL (0.2-1.0); Blood Urea Nitrogen 18 MG/DL (7-18); Calcium 8.4 MG/DL (8.5-10.1); Glucose 108 MG/DL (74-106); Magnesium 2.1 MG/DL (1.8-2.4); Osmolality,Calculated 288.8 MOS/KG (273-304); Potassium 3.9 MMOL/L (3.5-5.1); Sodium 144 MMOL/L (136-145); Total Protein 6.2 G/DL (6.4-8.3); Troponin I Only < 0.015 NG/ML (0.00-0.045)
--- NOTE | 2016-10-12 14:43 | Emergency Department Note ---
Murali Robert Manpreet, am scribing for, and in the presence of, Javier Owen MD 13:54. Lexie Robert Phillip K, MD, personally performed the services described in this documentation, ascribed by Tim Carrion in my presence, and it is both accurate and complete 443 . Arrival - Arrival Chief Complaint: Arrhythmia/Palpitations Stated Complaint: afib ED Nursing Triage Note: A fib with RVR sent from [facility] - pt states that she had a pacemaker placed x [address] Lua Mode of Arrival: Wheelchair Limitations: No Limitations Source: Patient Time Seen by Provider: 10/12/16 12:58 - History of Present Illness HPI Narrative: Pt is a 75 y/o female who is sent from her nurse practitioner's clinic, [facility], in [place] for A-fib and RVR earlier today. Pt had a pacemaker placed by Dr. Smith on September 26 of this month. Pt c/o being SOB for 2 months and has had a dry cough. Pt was up all night with the SOB and palpations. No other pains /complaints reported to the ED. Onset (ago): hour(s) Consistency: constant Severity: moderate Date of Last Menstrual Period: hyster Allergies/Adverse Reactions: Allergies Allergy/AdvReac Type Severity Reaction Status Date / Time codeine Allergy RASH Verified 09/25/16 13:52 [place] Allergy RASH Verified 09/25/16 13:52 Home Medications: Home Medications Medication Instructions Recorded Confirmed Type Anastrozole 1 mg PO QAM 09/25/16 10/12/16 History Brimonidine 0.2% Oph Soln 1 drop BOTH EYES BID 09/25/16 10/12/16 History [Alphagan P 0.2% Oph Soln] Calcium Carbonate 600 mg PO BID 09/25/16 10/12/16 History Celecoxib [Celebrex] 200 mg PO DAILY PRN 09/25/16 10/12/16 History Cinnamon Bark [Cinnamon] 500 mg PO BID 09/25/16 10/12/16 History Cyanocobalamin (Vitamin B-12) 2,500 mcg PO DAILY 09/25/16 10/12/16 History [Vitamin B12] Dexlansoprazole [Dexilant] 60 mg PO QAM 09/25/16 10/12/16 History Gluc [place]/Chondro [place] A/Vit C/Mn 1 each PO DAILY 09/25/16 10/12/16 History [Glucosamine Chondroitin Tab] Lisinopril [Prinivil] 20 mg PO QAM 09/25/16 10/12/16 History [place]-3S/Dha/Epa/Fish Oil [Fish 1 each PO QAM 09/25/16 10/12/16 History Oil 1,200 mg Softgel] Temazepam 15 mg PO BEDTIME 09/25/16 10/12/16 History Timolol Maleate [Timolol 0.25% Oph 1 drop BOTH EYES BID 09/25/16 10/12/16 History Soln] Travoprost 0.004% Oph Soln 1 drop BOTH EYES BEDTIME 09/25/16 10/12/16 History [Travatan Z] Vitamin E 400 unit PO QAM 09/25/16 10/12/16 History Amiodarone Tab [Cordarone Tab] 200 mg PO BID #180 tablet 09/27/16 10/12/16 Rx Apixaban [Eliquis] 5 mg PO BID #60 tablet 09/27/16 10/12/16 Rx Furosemide Tab [Lasix Tab] 20 mg PO DAILY PRN 10/12/16 10/12/16 History Metoprolol Succinate Xl [Toprol Xl] 100 mg PO QAM 10/12/16 10/12/16 History levoFLOXacin [Levofloxacin] 500 mg PO QAM 10/12/16 10/12/16 History Review of System - Review of System 12 point system: reviewed and no additional remarkable complaints except as stated - Review of System Constitutional: Absent: chills, diaphoresis, fever Respiratory: Present: cough, respiratory distress. Absent: wheezing Cardiovascular: Present: palpitations. Absent: chest pain Gastrointestinal: Absent: abdominal pain, nausea, vomiting Musculoskeletal: Absent: arm pain, back pain, lower back pain, leg pain, neck pain Neurological: Absent: headache, weakness, numbness, paresthesias Medical,Surgical,& Family Hx - Medical History Cardio: History of: Hypertension, Cardiovascular Problems (A fib) Gastrointestinal: History of: GERD Reproductive: History of: Breast Cancer - Surgical History Abdominal Surgeries: Surgical HX of: Abdominal Surgery (Gastric bypass) Reproductive Surgeries: Surgical HX of;: Breast Surgery Orthopedic Surgeries: Surgical HX of;: Total Hip Replacement, Total Knee Replacement - Family History Family History: Reports;: Family Heart Disease (Brother with atrial fibrillation ) - Social History Smoking Status: Never smoker Frequency of Alcohol Use: None Type of Drug Use: None Exam Vital Signs: Vital Signs Temperature 96.7 F L 10/12/16 16:16 Pulse Rate 98 H 10/12/16 16:16 Respiratory Rate 20 10/12/16 16:16 Blood Pressure 140/72 10/12/16 16:16 O2 Sat by Pulse Oximetry 98 10/12/16 16:16 - General General appearance: alert, in no apparent distress - Head Head exam: Present: atraumatic, normocephalic, normal inspection - Eye Eye exam: Present: normal appearance, PERRL, EOMI - ENT ENT exam: Present: normal exam, normal oropharynx, mucous membranes moist, TM's normal bilaterally - Neck Neck exam: Present: normal inspection, full ROM, trachea midline. Absent: tenderness - Chest Chest inspection: Present: normal inspection, symmetric chest wall rise. Absent : tenderness - Respiratory Respiratory exam: Present: normal lung sounds bilaterally. Absent: accessory muscle use, respiratory distress - Cardiovascular Cardiovascular exam: Present: regular rate, irregular rhythm, murmur (2/6 Murmur ). Absent: rubs, gallop - Abdominal Exam Abdominal exam: Present: soft, normal bowel sounds. Absent: distention, tenderness, guarding, rebound - Extremities Exam Extremities exam: Present: normal inspection, full ROM, pedal edema (Trace edema ). Absent: tenderness - Back Exam Back exam: Present: normal inspection, full ROM. Absent: tenderness - Neurological Exam Neurological exam: Present: alert, oriented X3, CN II-XII intact, reflexes normal - Psychiatric Psychiatric exam: Present: normal affect, normal mood - Skin Skin exam: Present: warm, dry, intact, normal color. Absent: pallor Course Course Narrative: Dr. Atkinson is consulted and will see patient in the emergency department. Patient will be admitted to Dr. Atkinson for further monitoring. Results - Labs CBC & BMP: 10/12/16 12:55 10/12/16 12:55 Lab Results: I have reviewed the patients labs Labs: Laboratory Tests 10/12/16 10/12/16 12:55 12:55 WBC 9.2 RBC 4.58 Hgb 12.3 Hct 37.7 MCV 82.3 L MCH 27 MCHC 32.6 RDW 15.5 Plt Count 240 MPV 9.3 L Neut % (Auto) 72.3 Lymph % (Auto) 19.7 L [place] % (Auto) 5.1 Eos % (Auto) 2.0 Baso % (Auto) 0.4 Neut # (Auto) 6.6 Lymph # (Auto) 1.8 [place] # (Auto) 0.5 Eos # (Auto) 0.2 Baso # (Auto) 0.0 Immature Gran % 0.5 Nucleated RBC % 0.0 Immature Gran # 0.05 Nucleated RBCs # 0.00 Immature Plt Fraction 0.0 Sodium 144 Potassium 3.9 Chloride 110 H Carbon Dioxide 25 Anion Gap 12.9 BUN 18 Creatinine 0.70 GFR Calculation 100 BUN/Creatinine Ratio 25.00 H Glucose 108 H Calculated Osmolality 288.8 Calcium 8.4 L Magnesium 2.1 Total Bilirubin < 0.39 AST 22 ALT 24 Alkaline Phosphatase 74 Troponin I < 0.015 Total Protein 6.2 L Albumin 3.1 L Globulin 3.1 Albumin/Globulin Ratio 1.0 L Laboratory Tests 10/12/16 12:55 B-Natriuretic Peptide 421 H Laboratory Tests 10/12/16 10/12/16 12:55 12:55 Free T4 1.36 TSH 3rd Generation 2.090 - Diagnostic Findings Procedure: Chest x-ray: report reviewed by me ("Chest X-ray: Cardiomegaly and chronic changes similar on the prior study.") Disposition Clinical Impression: Atrial fibrillation with RVR, Dyspnea Case discussed with: patient Disposition: Still a Patient Condition: Stable
[2016-10-12] MEDS ORDERED: CELECOXIB 200 MG CAPSULE PO PRN (15:07)
[2016-10-12] MEDS ORDERED: ONDANSETRON 4 MG/2 ML VIAL IV PRN (15:07)
[2016-10-12] MEDS ORDERED: MAGNESIUM SULF RIDER 2 GM in PREMIX 1 EACH IV PRN (15:07)
[2016-10-12] MEDS ORDERED: ACETAMINOPHEN 325 MG TABLET PO PRN (15:07)
[2016-10-12] MEDS ORDERED: ZALEPLON 5 MG CAPSULE PO PRN (15:07)
[2016-10-12] MEDS ORDERED: DOCUSATE SODIUM 100 MG CAPSULE PO PRN (15:07)
[2016-10-12] MEDS ORDERED: FUROSEMIDE 20 MG TABLET PO PRN (15:07)
[2016-10-12] MEDS ORDERED: POTASSIUM CHLORIDE RIDER 10 MEQ in PREMIX 1 EACH IV PRN (15:07)
--- NOTE | 2016-10-12 15:13 | Cardiology History & Physical ---
Assessment and Plan - Time spent with patient Time spent with patient: Greater than 30 minutes (Examination, chart review, examination, consultation with other physicians and orders) (1) Atrial fibrillation with RVR Status: Chronic Assessment and plan: She has chronically had paroxysmal atrial fibrillation and she thinks this may be of what precipitated her problem but she is not sure previously she has had diastolic heart failure exacerbations with A. fib with RVR. Although she does not have heart failure by exam she has a mildly elevated BNP at this time. We will asked Dr. Lua to see as well. She appears to be on a significant amount of AV dena blockade agents and her heart rate remained significantly elevated. Consider the addition of calcium channel anai. Await input from Dr. Lua Current Visit: Yes (2) Dyspnea Status: Acute Assessment and plan: This certainly may be related to her atrial fibrillation will have her pacemaker interrogated. She has a mildly elevated BNP but states this is been going on for a while and she thinks it has 2 different problems it is very difficult night. She complains of sinus pressure and appears to have some sinus discomfort. Her lungs are clear chest x-ray is clear because of her body habitus will get venous Dopplers to rule out DVT she is anticoagulated I think this is very unlikely because of recent pacemaker implantation it is not unreasonable to check an echo to make sure she does not have pericardial effusion. She does not have muffled heart tones and no changes on EKG or telemetry to suggest significant effusion I cannot appreciate a JVD or hepatojugular reflux. She has experienced orthopnea. Current Visit: Yes Qualifiers: Dyspnea type: orthopnea Qualified Code(s): R06.01 - Orthopnea (3) Congestive heart failure Status: Acute Current Visit: No Qualifiers: Congestive heart failure type: diastolic Congestive heart failure chronicity: acute Qualified Code(s): I50.31 - Acute diastolic (congestive) heart failure (4) Former smoker Status: Chronic Current Visit: No (5) History of breast cancer Status: Chronic Current Visit: No (6) Hypertension Status: Chronic Current Visit: No (7) Obesity Status: Chronic Current Visit: No (8) Sleep apnea, unspecified Status: Chronic Current Visit: No History of Present Illness Chief complaint: Shortness of breath and A. fib History of present illness: Ms. Abdullahi is a 75 year old female 75-year-old female with history of diastolic heart failure secondary to A. fib and rapid ventricular response who states that she had a "bad night" all night. She states she was short of breath and could not back in bed she had some lower extremity edema but not very much she said "nothing to speak about." The patient denies any chest pain. She states yesterday she just felt bad all over she recently had a dual- chamber pacemaker placement for tachybradycardia syndrome and rather long conversion pauses from her paroxysmal A. fib. Apparently she did not tolerate AV dena blocking agents very much. This was placed on September [address] Lua was without apparent complication she has been followed up in the clinic by that time since Dr. Lua and has a very healthy looking access site. She denies any fevers or chills she states she has had fullness in her sinuses when she leans over like she is getting a sinus infection and she is on Levaquin. The patient apparently is asymptomatic with her atrial fibrillation she says she has been short of breath for some time and is gotten progressively worse she thought had gotten better after initiation of the pacemaker however she states it seems to be worse last night than any other episodes. She went to see her nurse practitioner today who referred to the emergency room she was evaluated by Dr. Amy Owen and I was called to see the patient. I evaluated the patient in room 11 in the emergency department. She is accompanied by her . When I arrived to the room her sats were 94% on room air she has a paced rhythm at approximately 100-104 bpm she appears in no acute distress. History was obtained and examination was performed. Also discussed personally with Dr. Owen Home Medications Medication Instructions Recorded Confirmed Type Anastrozole 1 mg PO QAM 09/25/16 10/12/16 History Brimonidine 0.2% Oph Soln 1 drop BOTH EYES BID 09/25/16 10/12/16 History [Alphagan P 0.2% Oph Soln] Calcium Carbonate 600 mg PO BID 09/25/16 10/12/16 History Celecoxib [Celebrex] 200 mg PO DAILY PRN 09/25/16 10/12/16 History Cinnamon Bark [Cinnamon] 500 mg PO BID 09/25/16 10/12/16 History Cyanocobalamin (Vitamin B-12) 2,500 mcg PO DAILY 09/25/16 10/12/16 History [Vitamin B12] Dexlansoprazole [Dexilant] 60 mg PO QAM 09/25/16 10/12/16 History Gluc Vaughan/Chondro Vaughan A/Vit C/Mn 1 each PO DAILY 09/25/16 10/12/16 History [Glucosamine Chondroitin Tab] Lisinopril [Prinivil] 20 mg PO QAM 09/25/16 10/12/16 History [place]-3S/Dha/Epa/Fish Oil [Fish 1 each PO QAM 09/25/16 10/12/16 History Oil 1,200 mg Softgel] Temazepam 15 mg PO BEDTIME 09/25/16 10/12/16 History Timolol Maleate [Timolol 0.25% Oph 1 drop BOTH EYES BID 09/25/16 10/12/16 History Soln] Travoprost 0.004% Oph Soln 1 drop BOTH EYES BEDTIME 09/25/16 10/12/16 History [Travatan Z] Vitamin E 400 unit PO QAM 09/25/16 10/12/16 History Amiodarone Tab [Cordarone Tab] 200 mg PO BID #180 tablet 09/27/16 10/12/16 Rx Apixaban [Eliquis] 5 mg PO BID #60 tablet 09/27/16 10/12/16 Rx Furosemide Tab [Lasix Tab] 20 mg PO DAILY PRN 10/12/16 10/12/16 History Metoprolol Succinate Xl [Toprol Xl] 100 mg PO QAM 10/12/16 10/12/16 History levoFLOXacin [Levofloxacin] 500 mg PO QAM 10/12/16 10/12/16 History Allergies Allergy/AdvReac Type Severity Reaction Status Date / Time codeine Allergy RASH Verified 09/25/16 13:52 [place] Allergy RASH Verified 09/25/16 13:52 - Constitutional Constitutional: Present: malaise. Absent: anorexia, chills, increased appetite - EENT Eyes: Absent: blurry vision, diplopia Nose, mouth and throat: Present: sinus pressure, other (Sinus pressure when she bends over) - Cardiovascular Cardiovascular: Present: dyspnea, dyspnea on exertion, edema (Trace), palpitations. Absent: chest pain at rest - Respiratory Respiratory: Present: dyspnea, dyspnea on exertion. Absent: cough - Gastrointestinal Gastrointestinal: Absent: abdominal pain, bloating, early satiety, heartburn, nausea - Genitourinary Genitourinary: Absent: abnormal vaginal bleeding, difficulty urinating - Musculoskeletal Musculoskeletal: Absent: arthralgias, joint swelling - Neurological Neurological: Absent: disequilibrium - Psychiatric Psychiatric: Absent: anxiety, depression - Endocrine Endocrine: Absent: cold intolerance, heat intolerance - Hematologic/Lymphatic Hematologic/Lymphatic: Present: easy bruising. Absent: easy bleeding Medical,Surgical,& Family Hx - Medical History Cardio: History of: Hypertension, Pacemaker, Cardiovascular Problems (A fib, paroxysmal with tachybradycardia syndrome and conversion pauses stat) Gastrointestinal: History of: GERD Reproductive: History of: Breast Cancer (Followed by Dr. Tashi Carroll) - Surgical History Abdominal Surgeries: Surgical HX of: Abdominal Surgery (Gastric bypass) Reproductive Surgeries: Surgical HX of;: Breast Surgery Orthopedic Surgeries: Surgical HX of;: Total Hip Replacement (Bilateral), Total Knee Replacement (Right) - Family History Family History: Reports;: Family Heart Disease (Brother with atrial fibrillation ) - Social History Smoking Status: Never smoker Frequency of Alcohol Use: None Type of Drug Use: None Marital Status: Lives With:: Spouse Functional capacity: independent ambulation Cardiology Physical Exam - Constitutional Vitals: Vital Signs Temp Pulse Resp BP Pulse Ox 97.5 F L 75 16 163/96 98 10/12/16 12:21 10/12/16 14:00 10/12/16 14:00 10/12/16 14:00 10/12/16 14:00 Intake and Output 10/11/16 10/12/16 10/12/16 23:59 07:59 15:59 Other: Weight 96.162 kg Patient Weight 10/12/16 23:59 Weight 96.162 kg General appearance: over weight - Head Head exam: Present: normal inspection - Eye Eye exam: Present: EOMI Pupils: Present: ADELINA - ENT ENT exam: Present: other (ASA 3) - Neck Neck exam: Present: normal inspection - Respiratory Respiratory exam: Present: clear to auscultation bilaterally - Cardiovascular Cardiovascular exam: Present: regular rate and rhythm - GI/Abdominal GI/Abdominal exam: Present: normal bowel sounds - Extremities Exam Extremities exam: Present: normal inspection. Absent: edema - Back Exam Back exam: Present: normal inspection - Neurological Exam Neurological exam: Present: alert, oriented X3 - Psychiatric Psychiatric exam: Present: normal affect, normal mood - Skin Skin exam: Present: normal color, warm, dry Result/EKG - Labs CBC & BMP: 10/12/16 12:55 10/12/16 12:55 Labs: Laboratory Results - last 24 hr 10/12/16 10/12/16 10/12/16 12:55 12:55 12:55 WBC 9.2 RBC 4.58 Hgb 12.3 Hct 37.7 MCV 82.3 L MCH 27 MCHC 32.6 RDW 15.5 Plt Count 240 MPV 9.3 L Neut % (Auto) 72.3 Lymph % (Auto) 19.7 L [place] % (Auto) 5.1 Eos % (Auto) 2.0 Baso % (Auto) 0.4 Neut # (Auto) 6.6 Lymph # (Auto) 1.8 [place] # (Auto) 0.5 Eos # (Auto) 0.2 Baso # (Auto) 0.0 Immature Gran % 0.5 Nucleated RBC % 0.0 Immature Gran # 0.05 Nucleated RBCs # 0.00 Immature Plt Fraction 0.0 Sodium 144 Potassium 3.9 Chloride 110 H Carbon Dioxide 25 Anion Gap 12.9 BUN 18 Creatinine 0.70 GFR Calculation 100 BUN/Creatinine Ratio 25.00 H Glucose 108 H Calculated Osmolality 288.8 Calcium 8.4 L Magnesium 2.1 Total Bilirubin < 0.39 AST 22 ALT 24 Alkaline Phosphatase 74 Troponin I < 0.015 B-Natriuretic Peptide 421 H Total Protein 6.2 L Albumin 3.1 L Globulin 3.1 Albumin/Globulin Ratio 1.0 L - EKG EKG results: interpreted by me (Atrially paced rhythm)
--- NOTE | 2016-10-12 16:48 | Ultrasound Report ---
History: Dyspnea. High risk for DVT Date: 10/12/2016 Study: Bilateral lower extremity color-flow venous Doppler study Comparison exam: No previous similar Color Doppler, wave form analysis, and compression analysis of the deep veins of both lower extremities from the common femoral vein level through the popliteal vein level shows that the veins are readily compressible. There is no abnormal intraluminal material to suggest thrombus. Waveform analysis is unremarkable. Ultrasound images were captured and archived Impression: Normal bilateral lower extremity color flow venous Doppler study. No evidence of acute DVT PROCEDURE INTERPRETED AT [facility] DEPARTMENT OF RADIOLOGY Final Report Signed by: Dr. Elvia Harris
--- NOTE | 2016-10-12 17:22 | Electrophysiology Consultation ---
History of Present Illness - Data of Consult Patient: known to practice within the last 3 years Consult date: 10/12/16 Requesting Physician: Vale Mcgill - Consult Narrative Reason for consult: SOB History of present illness: Ms. Abdullahi is a 75 year old female, with history of highly symptomatic paroxysmal atrial fibrillation, conversion pauses, symptomatic tachybradycardia syndrome. A dual-chamber pacemaker was implanted 2 weeks ago. She was loaded with amiodarone, due to frequent bursts of atrial fibrillation, RVR. She did well for several days, however, she developed episodes of sudden onset shortness of breath, fatigue. She could not rest well last night. She also noted episodes of tachycardia. Initial EKG shows sinus and atrial paced rhythm. She developed sudden onset shortness of breath on the floor, EKG confirmed typical atrial flutter/RVR. Blood pressure was normal. Cardiac biomarkers were normal, no significant ischemic changes on the EKG. Repeat echo showed mildly depressed ejection fraction, compared to her prior echo, the aortic stenosis was mild on her prior echo, now it seems to be mild to moderate. No pericardial effusion. There is moderate pulmonary hypertension. In atrial flutter, she is feeling unwell, SOB. CC: Vale Mcgill, DO - Home Medications and Allergies Home Medications: Home Medications Medication Instructions Recorded Confirmed Type Anastrozole 1 mg PO QAM 09/25/16 10/12/16 History Brimonidine 0.2% Oph Soln 1 drop BOTH EYES BID 09/25/16 10/12/16 History [Alphagan P 0.2% Oph Soln] Calcium Carbonate 600 mg PO BID 09/25/16 10/12/16 History Celecoxib [Celebrex] 200 mg PO DAILY PRN 09/25/16 10/12/16 History Cinnamon Bark [Cinnamon] 500 mg PO BID 09/25/16 10/12/16 History Cyanocobalamin (Vitamin B-12) 2,500 mcg PO DAILY 09/25/16 10/12/16 History [Vitamin B12] Dexlansoprazole [Dexilant] 60 mg PO QAM 09/25/16 10/12/16 History Gluc Vaughan/Chondro Vaughan A/Vit C/Mn 1 each PO DAILY 09/25/16 10/12/16 History [Glucosamine Chondroitin Tab] Lisinopril [Prinivil] 20 mg PO QAM 09/25/16 10/12/16 History [place]-3S/Dha/Epa/Fish Oil [Fish 1 each PO QAM 09/25/16 10/12/16 History Oil 1,200 mg Softgel] Temazepam 15 mg PO BEDTIME 09/25/16 10/12/16 History Timolol Maleate [Timolol 0.25% Oph 1 drop BOTH EYES BID 09/25/16 10/12/16 History Soln] Travoprost 0.004% Oph Soln 1 drop BOTH EYES BEDTIME 09/25/16 10/12/16 History [Travatan Z] Vitamin E 400 unit PO QAM 09/25/16 10/12/16 History Amiodarone Tab [Cordarone Tab] 200 mg PO BID #180 tablet 09/27/16 10/12/16 Rx Apixaban [Eliquis] 5 mg PO BID #60 tablet 09/27/16 10/12/16 Rx Furosemide Tab [Lasix Tab] 20 mg PO DAILY PRN 10/12/16 10/12/16 History Metoprolol Succinate Xl [Toprol Xl] 100 mg PO QAM 10/12/16 10/12/16 History levoFLOXacin [Levofloxacin] 500 mg PO QAM 10/12/16 10/12/16 History Allergies/Adverse Reactions: Allergies Allergy/AdvReac Type Severity Reaction Status Date / Time codeine Allergy RASH Verified 09/25/16 13:52 [place] Allergy RASH Verified 09/25/16 13:52 Medical,Surgical,& Family Hx - Medical History Cardio: History of: Hypertension, Pacemaker, Cardiovascular Problems (A fib) Gastrointestinal: History of: GERD Reproductive: History of: Breast Cancer (right breast,) - Surgical History Abdominal Surgeries: Surgical HX of: Abdominal Surgery (Gastric bypass) Reproductive Surgeries: Surgical HX of;: Breast Surgery Orthopedic Surgeries: Surgical HX of;: Total Hip Replacement (bilateral hip), Total Knee Replacement (right knee) - Family History Family History: Reports;: Family Heart Disease (mother and Brother with atrial fibrillation) - Social History Smoking Status: Never smoker Frequency of Alcohol Use: None Type of Drug Use: None 12 point system: reviewed and no additional remarkable complaints except as stated Exam - Constitutional Vitals: Period Temp Pulse Resp BP Sys/Garcia Pulse Ox Last 24 Hr 96.7 F-97.5 F 63-101 16-20 123-178/49-99 98-100 General appearance: mild distress, morbidly obese - Head Head exam: Present: normal inspection, normocephalic - Eye Eye exam: Absent: conjunctival injection, scleral icterus - ENT ENT exam: Present: normal external ear exam - Neck Neck exam: Present: normal inspection - Respiratory Respiratory exam: Present: clear to auscultation bilaterally - Cardiovascular Cardiovascular exam: Present: irregular rhythm, systolic murmur, tachycardia - GI/Abdominal GI/Abdominal exam: Present: normal bowel sounds. Absent: distended - Extremities Exam Extremities exam: Present: normal inspection, normal capillary refill. Absent: edema - Back Exam Back exam: Present: normal inspection - Neurological Exam Neurological exam: Present: alert, oriented X3 - Psychiatric Psychiatric exam: Present: normal affect, normal mood - Skin Skin exam: Present: normal color, warm. Absent: cyanosis Results - Labs CBC & BMP: 10/12/16 12:55 10/12/16 12:55 Lab Results: I have reviewed the past 24 hour labs Assessment and Plan (1) Dyspnea Status: Acute Assessment and plan: 75-year-old female, highly symptomatic, paroxysmal atrial flutter/RVR, history of paroxysmal A. fib, tachybradycardia, dual-chamber pacemaker implant, mild/ moderate left ear, diastolic dysfunction, obesity, CADEN. The flutter appears to be typical and paroxysmal. Likely will remain difficult to control with medical management. -Continue amiodarone 200 mg daily. Start Cardizem 60 mg every 6 hours. Continue metoprolol. -If poor response to medical management, ablation can be considered. I would prefer to postpone this, for a few weeks after the recent pacemaker implant. She has remodeled left atrium and aortic stenosis, and her symptomatic arrhythmia at this time seems to be typical flutter. We may pursue flutter ablation, I would not suggest to do a PVI at this time. -Continue anticoagulation with Eliquis. Current Visit: Yes Qualifiers: Dyspnea type: orthopnea Qualified Code(s): R06.01 - Orthopnea (2) Atrial fibrillation with RVR Status: Chronic Current Visit: Yes (3) New onset atrial fibrillation Status: Acute Current Visit: No (4) History of breast cancer Status: Chronic Current Visit: No (5) Hypertension Status: Chronic Current Visit: No (6) Obesity Status: Chronic Current Visit: No (7) Sleep apnea, unspecified Status: Chronic Current Visit: No Quality Measures - VTE Contraindication to Pharmacological VTE Prophylaxis: Hypersensitivity to UFH / LMWH
[2016-10-12] MEDS: DILTIAZEM 30 MG TABLET PO SCH (17:29)
[2016-10-12] MEDS ORDERED: DILTIAZEM 30 MG TABLET PO SCH (17:30)
[2016-10-12 19:35] LABS: Troponin I Only < 0.015 NG/ML (0.00-0.045)
[2016-10-12 19:50] LABS: Apearance,Urine CLEAR (Clear); Bilirubin,Urine Negative (Negative); Blood, Urine Negative (Negative); Glucose,Urine (UA) Negative (Negative); Ketones,Urine Negative (Negative); Mucus,Urine Occasional /LPF (Occasional); Nitrite,Urine Negative (Negative); Protein,Urine Negative; RBC,Urine 2 /HPF (0-4); Squamous Epithelial Cell,Urine Occasional /HPF (0-10); Urine Color Yellow (Yellow); Urine Specific Gravity 1.017 (1.001-1.035); Urine Urobilinogen < 2.0 EU/DL (0.2-1.0); WBC,Urine 9 /HPF (0-6)
[2016-10-12] MEDS ORDERED: NON-FORMULARY MEDICATION (Cinnamon Bark [Cinnamon] 500 MG) PO SCH (21:00)
[2016-10-12] MEDS ORDERED: TEMAZEPAM 15 MG CAPSULE PO SCH (21:00)
[2016-10-12] MEDS ORDERED: TRAVOPROST 0.004% OPH SOLN 2.5 ML BOTTLE BOTH EYES SCH (21:00)
[2016-10-12] MEDS ORDERED: AMIODARONE 200 MG TABLET PO SCH (21:00)
[2016-10-12] MEDS: APIXABAN 5 MG TABLET PO SCH (21:30)
[2016-10-12] MEDS: CALCIUM (CARBONATE) 600 MG TABLET PO SCH (21:30)
[2016-10-13 00:23] LABS: Troponin I Only < 0.015 NG/ML (0.00-0.045)
[2016-10-13] MEDS: BRIMONIDINE 0.2% OPH SOLN 5 ML BOTTLE BOTH EYES SCH ×2 (03:49→09:33)
[2016-10-13] MEDS: TIMOLOL 0.25% OPH SOLN 5 ML BOTTLE BOTH EYES SCH ×2 (03:49→09:34)
[2016-10-13] MEDS: DILTIAZEM 30 MG TABLET PO SCH ×2 (03:58→09:29)
[2016-10-13 05:00] LABS: Basophils # 0.1 10*3/uL (0.0-0.2); Basophils % 0.5 % (0.0-0.8); Eosinophils # 0.3 10*3/uL (0.0-0.87); Eosinophils % 3.2 % (0.00-10.9); Hematocrit 38.3 VOL% (35.7-47.0); Hemoglobin 12.2 GM/DL (12.0-16.0); Immature Granulocytes % 0.6 %; Immature Granulocytes Absolute 0.06 #; Lymphocytes % 30.4 % (21.3-54.2); Mean Corpuscular HGB Conc 31.9 GM/DL (32-36); Mean Corpuscular Hemoglobin 27 PG (27-34); Mean Platelet Volume 10.6 FL (9.6-12.0); Monocytes # 0.7 10*3/uL (0.11-0.8); Monocytes % 7.4 % (1.7-12.7); Neutrophils # 5.7 10*3/uL (1.4-7.4); Neutrophils % 57.9 % (38.7-73.9); Platelet Count 193 T/CUMM (130-400); Red Blood Count 4.56 MC/CUMM (3.8-5.5); Red Cell Distribution Width 15.4 % (9.3-17.3); White Blood Count 9.8 T/CUMM (4-12)
[2016-10-13 05:47] LABS: Calcium 8.3 MG/DL (8.5-10.1); Magnesium 2.4 MG/DL (1.8-2.4); Potassium 4.2 MMOL/L (3.5-5.1)
--- NOTE | 2016-10-13 07:27 | EKG Report ---
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
--- NOTE | 2016-10-13 07:43 | Electrophysiology Progress Not ---
Assessment and Plan (1) Dyspnea Status: Acute Assessment and plan: 75-year-old female, highly symptomatic, paroxysmal atrial flutter/RVR, history of paroxysmal A. fib, tachybradycardia, dual-chamber pacemaker implant, mild/ moderate left ear, diastolic dysfunction, obesity, CADEN. During the stay, she had A. fib, typical and atypical atrial flutter, RVR. -PATRIC. Her symptoms are due to RVR. Improved with Cardizem. Decrease amiodarone to 200 mg daily, continue Toprol-XL 100 mg daily, may increase Cardizem up to a total of 480 mg daily dose, if tolerated by blood pressure. -Continue anticoagulation. -I asked Antwan to come by and enable atrial ATP, atrial preference pacing -There are multiple atrial arrhythmia morphologies suggestive of extensive atrial disease, I would suggest to continue medical management at this point, as the long-term success rate for even an extensive atrial ablation seems to be quite low. AV node ablation remains an option -From an EP perspective, she may be able to go home today, if rate remains adequately controlled on current regimen, and she has no major symptoms with ambulation. -Follow-up with EP in a month Current Visit: Yes Qualifiers: Dyspnea type: orthopnea Qualified Code(s): R06.01 - Orthopnea (2) Atrial fibrillation with RVR Status: Chronic Current Visit: Yes (3) New onset atrial fibrillation Status: Acute Current Visit: No (4) History of breast cancer Status: Chronic Current Visit: No (5) Hypertension Status: Chronic Current Visit: No (6) Obesity Status: Chronic Current Visit: No (7) Sleep apnea, unspecified Status: Chronic Current Visit: No Electrophysiology Subjective Interval history: She spent most of the night in A. fib, typical and atypical atrial flutter. Heart rate became better controlled, by starting Cardizem. She is feeling better. Exam - Constitutional Vitals: Period Temp Pulse Resp BP Sys/Garcia Pulse Ox Last 24 Hr 96.0 F-97.5 F 63-121 16-20 122-178/49-99 96-100 General appearance: normal weight, morbidly obese - Head Head exam: Present: normal inspection - Eye Eye exam: Absent: scleral icterus Pupils: Present: normal accommodation. Absent: constricted - ENT ENT exam: Present: normal external ear exam - Neck Neck exam: Present: normal inspection - Respiratory Respiratory exam: Present: clear to auscultation bilaterally. Absent: accessory muscle use - Cardiovascular Cardiovascular exam: Present: regular rate and rhythm, systolic murmur. Absent : JVD - GI/Abdominal GI/Abdominal exam: Present: normal bowel sounds. Absent: distended - Extremities Exam Extremities exam: Present: normal inspection, normal capillary refill. Absent: edema - Back Exam Back exam: Present: normal inspection - Neurological Exam Neurological exam: Present: alert, oriented X3 - Psychiatric Psychiatric exam: Present: normal affect, normal mood - Skin Skin exam: Present: normal color, warm. Absent: cyanosis Results - Labs CBC & BMP: 10/13/16 04:14 10/13/16 04:14 Lab Results: I have reviewed the past 24 hour labs Quality Measures - VTE Contraindication to Pharmacological VTE Prophylaxis: Hypersensitivity to UFH / LMWH
--- NOTE | 2016-10-13 08:09 | EKG Report ---
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
--- NOTE | 2016-10-13 08:09 | ECHO Report ---
Neetu Abdullahi Exam Date: 10/12/2016 15:49 Referring Physician: Technologist: neeraj Simms ARDMS, RVT Age: 75 Ht (in): 64 Wt (lb): 212 Gender: F Exam Location: [facility] Echo Indications: A-Fib w/RVR, Dyspnea, unspecified, Essential (primary) hypertension, CHF, Sleep apnea BP: 163 / 96 HR: 116 Rhythm: Atrial fibrillation Technical Quality: IMPRESSIONS Left ventricular ejection fraction is estimated at 55%. Diastolic parameters are incomplete. Tricuspid regurgitation velocities suggest a RVSP of 47 mmHg. Diastolic parameters are incomplete. Biatrial enlargement Pacing wires visualized MEASUREMENTS (Male / Female) Normal Values 2D ECHO LV Diastolic Diameter PLAX 4.1 cm 4.2 - 5.9 / 3.9 - 5.3 cm LV Systolic Diameter PLAX 2.4 cm LV Fractional Shortening PLAX 40.9 % IVS Diastolic Thickness 1.3 cm 0.6 - 1.0 / 0.6 - 0.9 cm LVPW Diastolic Thickness 1.3 cm 0.6 - 1.0 / 0.6 - 0.9 cm RV Internal Dim ED PLAX 3.1 cm Aortic Root Diameter 3.4 cm LA Systolic Diameter LX 5.1 cm 3.0 - 4.0 / 2.7 - 3.8 cm DOPPLER TR Peak Velocity 343.0 cm/s TR Peak Gradient 47.1 mmHg FINDINGS Left Ventricle Normal left ventricular cavity size. Mild left ventricular hypertrophy. Left ventricular ejection fraction is estimated at 55%. Diastolic parameters are incomplete Right Ventricle The right ventricle is normal in size and function. There is a pacing wire in the right ventricle. Right Atrium The right atrium is enlarged. There is a pacing wire in the right atrium. Left Atrium Moderately increased left atrial size. Mitral Valve Morphologically normal mitral valve. Mild mitral valve regurgitation. Aortic Valve Aortic valve sclerosis without stenosis or regurgitation. Tricuspid Valve Morphologically normal tricuspid valve. Mild tricuspid valve regurgitation. Tricuspid regurgitation velocities suggest a RVSP of 47 mmHg. Pulmonic Valve Morphologically normal pulmonic valve without significant stenosis. There is no pulmonic regurgitation. Pericardium Normal pericardium without effusion. Aorta Normal ascending aorta dimension. Vale Mcgill (Electronically Signed) Final Date: 13 October 2016 08:08
[2016-10-13 08:10] LABS: Troponin I Only < 0.015 NG/ML (0.00-0.045)
[2016-10-13] MEDS ORDERED: METOPROLOL SUCCINATE XL 100 MG TABLET PO SCH (09:00)
[2016-10-13] MEDS ORDERED: LISINOPRIL 20 MG TABLET PO SCH (09:00)
[2016-10-13] MEDS ORDERED: AMIODARONE 200 MG TABLET PO SCH (09:00)
[2016-10-13] MEDS ORDERED: NON-FORMULARY MEDICATION (Gluc Su/Chondro Su A/Vit C/Mn [Glucosamine Chondroitin Tab] 1 EA PO SCH (09:00)
[2016-10-13] MEDS ORDERED: CYANOCOBALAMIN 500 MCG TABLET PO SCH (09:00)
[2016-10-13] MEDS ORDERED: ANASTROZOLE 1 MG TABLET PO SCH (09:00)
[2016-10-13] MEDS ORDERED: PANTOPRAZOLE 40 MG TABLET PO SCH (09:00)
[2016-10-13] MEDS ORDERED: OMEGA 3 ACID ETHYL ESTERS 1 GM CAPSULE PO SCH (09:00)
[2016-10-13] MEDS ORDERED: VITAMIN E 200 UNIT CAPSULE PO SCH (09:00)
[2016-10-13] MEDS: APIXABAN 5 MG TABLET PO SCH (09:31)
[2016-10-13] MEDS: CALCIUM (CARBONATE) 600 MG TABLET PO SCH (09:32)
--- NOTE | 2016-10-13 12:02 | Discharge Summary ---
Dionisio Robert Vanessa, RN, am scribing for, and in the presence of, Vale Mcgill DO 12 :02. Hospital Course - Hospital Course Hospital Course: CARDIOLOGY: DR. LUA Mrs. Abdullahi, 75 year old BF, with PMHx of hypertension, paroxysmal atrial fibrillation, diastolic heart failure secondary to episodes of atrial fib with RVR, GERD. Patient recently had a dual-chamber pacemaker implant on September [address] Lua, was seen in clinic by him in follow-up, and was doing well. Pacemaker implantation was required for tachybradycardia syndrome with long conversion pauses from PAF, and she apparently had been intolerant of AV dena blocking agents. Ms. Abdullahi presented to the ER yesterday afternoon, October 13, after she was referred by her primary PATTERN HAND with complaints of progressive worsening of shortness of breath, mild lower extremity edema with onset of symptomatic palpitations the night before. She had also recently had reported sinus infection and is on Levaquin. Patient admitted overnight to telemetry floor for close observation, and Dr. Lua also evaluated in EP consultation. Patient found to be having episodes of atrial fib with RVR, typical and atypical atrial flutter. She was started on Cardizem with improved control in heart rate. Medications were adjusted as follows: - Decrease amiodarone to 200 mg daily. - Continue Toprol-XL 100 mg daily. - May increase Cardizem up to a total of 480 mg daily dose, if tolerated by blood pressure. - Continue anticoagulation, Eliquis. [employer] patient registration representative has come by today and enabled atrial ATP, atrial preference pacing. Medical management at this point as the long-term success rate for atrial ablation is low. AV dena ablation, however, could be an option. Patient remains stable this morning. She is tolerating addition of Cardizem well. At this time, she has met maximum hospital benefit, and she is stable for discharge home today. Patient feels well this morning and is agreeable to this. She will be given a follow-up appointment with Dr. Lua in 1 month. Will be given a prescription for Cardizem. Since this was the initiation of a new medication we converted the patient from 60 mg of immediate release Cardizem CD 120 mg p.o. twice daily. This will hopefully minimize the number of times a day the patient has to take the medication and maximize her opportunity to up titrate her to down titrate her dose if she does not tolerate it. - Time spent with patient Time with patient DS: Greater than 30 minutes Diagnosis - Discharge Diagnosis (1) Dyspnea Status: Resolved (2) Paroxysmal atrial fibrillation Status: Chronic (3) Atrial fibrillation with RVR Status: Chronic (4) Former smoker Status: Chronic (5) History of breast cancer Status: Chronic (6) Hypertension Status: Chronic (7) Obesity Status: Chronic (8) Sleep apnea, unspecified Status: Chronic Specialty Discharge - Follow Up or Referrals Follow up with: Behzad Lua MD [Physician] - 11/14/16 3:10 pm (EP follow-up with Dr. Lua in 1 month at [facility].) Discharge Plan - Discharge Data Disposition: Disch To Home/Self Care Condition at Discharge: Stable Discharge Diet: advance to your usual diet Activity: resume usual activities as tolerated Hygiene: may shower Weight Bearing at Discharge: full weight bearing Driving: no restrictions Contact your physician if you experience:: fever over 101, Difficulty voiding, Redness or swelling, Nausea/Vomiting, Shortness of breath, Bleeding, pain uncontrolled by pain medications - Discharge Medications New Amiodarone Tab [Cordarone Tab] 200 mg PO DAILY tablet Diltiazem Cd Cap [Cardizem CD] 120 mg PO BID #60 capsule Continue Anastrozole 1 mg PO QAM Calcium Carbonate 600 mg PO BID Celecoxib [Celebrex] 200 mg PO DAILY PRN PRN Reason: KNEE/HIP PAIN Cinnamon Bark [Cinnamon] 500 mg PO BID Cyanocobalamin (Vitamin B-12) [Vitamin B12] 2,500 mcg PO DAILY Lisinopril [Prinivil] 20 mg PO QAM [place]-3S/Dha/Epa/Fish Oil [Fish Oil 1,200 mg Softgel] 1 each PO QAM Temazepam 15 mg PO BEDTIME Timolol Maleate [Timolol 0.25% Oph Soln] 1 drop BOTH EYES BID Travoprost 0.004% Oph Soln [Travatan Z] 1 drop BOTH EYES BEDTIME Vitamin E 400 unit PO QAM Apixaban [Eliquis] 5 mg PO BID #60 tablet Furosemide Tab [Lasix Tab] 20 mg PO DAILY PRN PRN Reason: Edema Metoprolol Succinate Xl [Toprol Xl] 100 mg PO QAM Brimonidine 0.2% Oph Soln [Alphagan P 0.2% Oph Soln] 1 drop BOTH EYES BID Dexlansoprazole [Dexilant] 60 mg PO QAM levoFLOXacin [Levofloxacin] 500 mg PO QAM No Action Gluc Vaughan/Chondro Vaughan A/Vit C/Mn [Glucosamine Chondroitin Tab] 1 each PO DAILY - Follow Up or Referral Follow Up: Behzad Lua MD [Physician] - 11/14/16 3:10 pm (EP follow-up with Dr. Lua in 1 month at [facility].) - Forms/Instructions Instructions: Atrial Fibrillation (DC) Exam - Constitutional Vitals: Period Temp Pulse Resp BP Sys/Garcia Pulse Ox Last 24 Hr 96.0 F-97.6 F 63-121 16-20 100-178/49-99 96-100 Exam: General appearance: morbidly obese, no acute distress. - Head Head exam: Present: normal inspection - Eye Eye exam: Present: EOMI Pupils: Present: ADELINA - ENT ENT exam: Present: other (ASA 3) - Neck Neck exam: Present: normal inspection. No JVD, no tenderness. No bruit. - Respiratory Respiratory exam: Present: clear to auscultation bilaterally. No wheeze, rhonchi , rales - Cardiovascular Cardiovascular exam: Present: regular rate and rhythm - GI/Abdominal GI/Abdominal exam: Present: normal bowel sounds, soft, nontender, obese abdomen - Extremities Exam Extremities exam: Present: normal inspection. Absent: edema. - Back Exam Back exam: Present: normal inspection, no tenderness. - Neurological Exam Neurological exam: Present: alert, oriented X3 - Psychiatric Psychiatric exam: Present: normal affect, normal mood - Skin Skin exam: Present: normal color, warm, dry. No cyanosis. No diaphoresis. Discharge Results Procedures and tests throughout hospitalization: Pending Orders 10/12/16 Urine Culture Routine Labs on day of discharge: Labs from last 24 hours 10/13/16 10/13/16 10/13/16 07:30 04:14 04:14 WBC RBC Hgb Hct MCV MCH MCHC RDW Plt Count MPV Neut % (Auto) Lymph % (Auto) [place] % (Auto) Eos % (Auto) Baso % (Auto) Neut # (Auto) Lymph # (Auto) [place] # (Auto) Eos # (Auto) Baso # (Auto) Immature Gran % Nucleated RBC % Immature Gran # Nucleated RBCs # Immature Plt Fraction Sodium 143 Potassium 4.2 Chloride 110 H Carbon Dioxide 26 Anion Gap 11.2 BUN 17 Creatinine 0.70 GFR Calculation 100 BUN/Creatinine Ratio 24.00 H Glucose 78 Calculated Osmolality 285.0 Calcium 8.3 L Magnesium 2.4 Total Bilirubin AST ALT Alkaline Phosphatase Total Creatine Kinase 43 CK-MB (CK-2) 1.6 Troponin I < 0.015 B-Natriuretic Peptide 538 H Total Protein Albumin Globulin Albumin/Globulin Ratio Free T4 TSH 3rd Generation Urine Color Urine Appearance Urine pH Ur Specific [place] Urine Protein Urine Glucose (UA) Urine Ketones Urine Blood Urine Nitrate Urine Bilirubin Urine Urobilinogen Urine Leukocytes Urine RBC Urine WBC Ur Squamous Epith Cells Urine Mucus Ur Culture Indicated? 10/13/16 10/12/16 10/12/16 04:14 Unknown 23:46 WBC 9.8 RBC 4.56 Hgb 12.2 Hct 38.3 MCV 84.0 L MCH 27 MCHC 31.9 L RDW 15.4 Plt Count 193 MPV 10.6 Neut % (Auto) 57.9 Lymph % (Auto) 30.4 [place] % (Auto) 7.4 Eos % (Auto) 3.2 Baso % (Auto) 0.5 Neut # (Auto) 5.7 Lymph # (Auto) 3.0 [place] # (Auto) 0.7 Eos # (Auto) 0.3 Baso # (Auto) 0.1 Immature Gran % 0.6 Nucleated RBC % 0.0 Immature Gran # 0.06 Nucleated RBCs # 0.00 Immature Plt Fraction 0.0 Sodium Potassium Chloride Carbon Dioxide Anion Gap BUN Creatinine GFR Calculation BUN/Creatinine Ratio Glucose Calculated Osmolality Calcium Magnesium Total Bilirubin AST ALT Alkaline Phosphatase Total Creatine Kinase 49 CK-MB (CK-2) 1.1 Troponin I < 0.015 B-Natriuretic Peptide Total Protein Albumin Globulin Albumin/Globulin Ratio Free T4 TSH 3rd Generation Urine Color Yellow Urine Appearance Clear Urine pH 6.0 Ur Specific [place] 1.017 Urine Protein Negative Urine Glucose (UA) Negative Urine Ketones Negative Urine Blood Negative Urine Nitrate Negative Urine Bilirubin Negative Urine Urobilinogen < 2.0 H Urine Leukocytes Small H Urine RBC 2 Urine WBC 9 Ur Squamous Epith Cells Occasional Urine Mucus Occasional Ur Culture Indicated? Ordered separately 10/12/16 10/12/16 10/12/16 18:30 12:55 12:55 WBC RBC Hgb Hct MCV MCH MCHC RDW Plt Count MPV Neut % (Auto) Lymph % (Auto) [place] % (Auto) Eos % (Auto) Baso % (Auto) Neut # (Auto) Lymph # (Auto) [place] # (Auto) Eos # (Auto) Baso # (Auto) Immature Gran % Nucleated RBC % Immature Gran # Nucleated RBCs # Immature Plt Fraction Sodium Potassium Chloride Carbon Dioxide Anion Gap BUN Creatinine GFR Calculation BUN/Creatinine Ratio Glucose Calculated Osmolality Calcium Magnesium Total Bilirubin AST ALT Alkaline Phosphatase Total Creatine Kinase 58 CK-MB (CK-2) 1.3 Troponin I < 0.015 B-Natriuretic Peptide Total Protein Albumin Globulin Albumin/Globulin Ratio Free T4 1.36 TSH 3rd Generation 2.090 Urine Color Urine Appearance Urine pH Ur Specific [place] Urine Protein Urine Glucose (UA) Urine Ketones Urine Blood Urine Nitrate Urine Bilirubin Urine Urobilinogen Urine Leukocytes Urine RBC Urine WBC Ur Squamous Epith Cells Urine Mucus Ur Culture Indicated? 10/12/16 10/12/16 10/12/16 12:55 12:55 12:55 WBC 9.2 RBC 4.58 Hgb 12.3 Hct 37.7 MCV 82.3 L MCH 27 MCHC 32.6 RDW 15.5 Plt Count 240 MPV 9.3 L Neut % (Auto) 72.3 Lymph % (Auto) 19.7 L [place] % (Auto) 5.1 Eos % (Auto) 2.0 Baso % (Auto) 0.4 Neut # (Auto) 6.6 Lymph # (Auto) 1.8 [place] # (Auto) 0.5 Eos # (Auto) 0.2 Baso # (Auto) 0.0 Immature Gran % 0.5 Nucleated RBC % 0.0 Immature Gran # 0.05 Nucleated RBCs # 0.00 Immature Plt Fraction 0.0 Sodium 144 Potassium 3.9 Chloride 110 H Carbon Dioxide 25 Anion Gap 12.9 BUN 18 Creatinine 0.70 GFR Calculation 100 BUN/Creatinine Ratio 25.00 H Glucose 108 H Calculated Osmolality 288.8 Calcium 8.4 L Magnesium 2.1 Total Bilirubin < 0.39 AST 22 ALT 24 Alkaline Phosphatase 74 Total Creatine Kinase CK-MB (CK-2) Troponin I < 0.015 B-Natriuretic Peptide 421 H Total Protein 6.2 L Albumin 3.1 L Globulin 3.1 Albumin/Globulin Ratio 1.0 L Free T4 TSH 3rd Generation Urine Color Urine Appearance Urine pH Ur Specific [place] Urine Protein Urine Glucose (UA) Urine Ketones Urine Blood Urine Nitrate Urine Bilirubin Urine Urobilinogen Urine Leukocytes Urine RBC Urine WBC Ur Squamous Epith Cells Urine Mucus Ur Culture Indicated? Preliminary micro results at discharge 10/12/16 Unknown Urine Culture - Preliminary Urine,Voided No Growth at 12 hours. - Imaging and Cardiology Cardiology Procedure: image reviewed by me (echocardiogram) Procedure: Chest x-ray: image reviewed by me, report reviewed by me DS: Provider Consults: 10/12/16 15:15 Consult to Physician [CONS] Routine Comment: dyspnea, recent PPM implant, r/o PAF- EP CONSULT!! Consulting Provider: Behzad Lua Consult to Specialist Group: Cardiology When should Consulting Provider be notified: Now Discharging clinician: Vale Mcgill MD Expected date of discharge: 10/13/16 Nano Robert Shea, DO, personally performed the services described in this documentation, ascribed by Lisbet Nichole RN in my presence, and it is both accurate and complete .
[2016-10-13 12:18] VITALS: BP 127/74
[2016-10-13] MEDS ORDERED: DILTIAZEM CD 120 MG CAPSULE PO SCH (21:00)
== END 2016-10-13 12:26 | disposition home or self-care (01) ==
LOC: N.ED 12:16 → N.EDINP 15:07 → INTOOBSV 15:07 → N.TELES 16:31
PROVIDERS: ADMIT Internal Medicine Cardiovascular Disease; ATTEND Internal Medicine Cardiovascular Disease

== ENCOUNTER 2021-10-26 20:55 | Inpatient (IN) ==
[2021-10-26 21:20] LABS: Basophils % 0.2 % (0.0-0.8); Eosinophils # 0.1 10*3/uL (0.0-0.87); Eosinophils % 0.7 % (0.00-10.9); Hematocrit 40.5 VOL% (35.7-47.0); Hemoglobin 12.2 GM/DL (12.0-16.0); Immature Granulocytes % 0.6 %; Immature Granulocytes Absolute 0.07 #; Lymphocytes # 0.7 10*3/uL (1.4-4.0); Lymphocytes % 6.7 % (21.3-54.2); Mean Corpuscular HGB Conc 30.1 GM/DL (32-36); Mean Corpuscular Volume 81.8 FL (87-102); Mean Platelet Volume 9.4 FL (9.6-12.0); Monocytes # 0.7 10*3/uL (0.11-0.8); Monocytes % 6.4 % (1.7-12.7); Neutrophils % 85.4 % (38.7-73.9); Platelet Count 231 T/CUMM (130-400); Red Blood Count 4.95 MC/CUMM (3.8-5.5); Red Cell Distribution Width 16.4 % (9.3-17.3); White Blood Count 10.8 T/CUMM (4-12)
[2021-10-26] MEDS ORDERED: DILTIAZEM 25 MG/5 ML VIAL IV STA (21:21)
[2021-10-26] MEDS ORDERED: PIPERACILLIN/TAZOBACTAM 3,375 MG in SODIUM CHLORIDE 0.9% 100 ML IV STA (21:33)
[2021-10-26] MEDS ORDERED: methylPREDNISolone SOD SUC 125 MG/2 ML VIAL IV STA (21:33)
[2021-10-26] MEDS: DILTIAZEM INJ 100 MG in SODIUM CHLORIDE 0.9% 100 ML IV SCH (21:35)
[2021-10-26 21:51] LABS: PT Patient Result 11.4 SECS (10.1-12.1); Partial Thromboplastin Time 24.5 SECS (23.7-32.9)
[2021-10-26 21:52] LABS: Arterial Base Excess iSTAT 2 MMOL/L (-2.5-2.5); Arterial Bicarbonate iSTAT 23.6 MMOL/L (20-26); Arterial O2 Saturation iSTAT 94 % (95-100); Arterial PCO2 iSTAT 29 MM HG (35-48); Arterial PO2 iSTAT 61 MM HG (80-95); Arterial Total CO2 iSTAT 25 MMO/L (23-27); Arterial pH iSTAT 7.522 (7.35-7.45)
[2021-10-26 21:59] LABS: Albumin 2.4 G/DL (3.4-5.0); Bilirubin,Total 0.7 MG/DL (0.20-1.00); Osmolality,Calculated 273.7 MOS/KG (273-304); Potassium 3.1 MMOL/L (3.5-5.1); Total Protein 6.6 G/DL (6.4-8.2)
[2021-10-26] MEDS ORDERED: POTASSIUM CHLORIDE 20 MEQ TABLET PO STA (22:04)
[2021-10-26 22:13] LABS: Thyroid Stimulating Hormone 0.351 uIU/ml (0.358-3.74)
[2021-10-26] MEDS ORDERED: DILTIAZEM 100 MG VIAL.ADD IV STA (22:15)
[2021-10-27] MEDS: ALBUTEROL/IPRATROPIUM 3 ML NEB RESP TX SCH ×4 (01:39→19:20)
[2021-10-27] MEDS: DILTIAZEM INJ 100 MG in SODIUM CHLORIDE 0.9% 100 ML IV SCH ×3 (05:12→21:40)
[2021-10-27] MEDS ORDERED: methylPREDNISolone SOD SUC 40 MG/1 ML VIAL IV SCH (06:00)
[2021-10-27] MEDS: PIPERACILLIN/TAZOBACTAM 3,375 MG in SODIUM CHLORIDE 0.9% 100 ML IV SCH ×3 (06:18→23:59)
[2021-10-27 06:41] LABS: Albumin 2.3 G/DL (3.4-5.0); Bilirubin,Total 0.5 MG/DL (0.20-1.00); Calcium 8.7 MG/DL (8.5-10.1); Potassium 4.1 MMOL/L (3.5-5.1); Total Protein 6.7 G/DL (6.4-8.2)
[2021-10-27] MEDS ORDERED: APIXABAN 5 MG TABLET PO SCH (09:00)
[2021-10-27] MEDS ORDERED: DILTIAZEM CD 180 MG CAPSULE PO SCH (09:00)
[2021-10-27] MEDS ORDERED: DILTIAZEM CD 120 MG CAPSULE PO SCH (09:00)
[2021-10-27 09:09] LABS: Arterial Base Excess iSTAT 0 MMOL/L (-2.5-2.5); Arterial O2 Saturation iSTAT 92 % (95-100); Arterial PCO2 iSTAT 32 MM HG (35-48); Arterial PO2 iSTAT 58 MM HG (80-95); Arterial Total CO2 iSTAT 24 MMO/L (23-27); Arterial pH iSTAT 7.464 (7.35-7.45)
[2021-10-27] MEDS: DILTIAZEM CD 240 MG CAPSULE PO SCH (09:28)
[2021-10-27] MEDS: ENOXAPARIN 100 MG/ML SYRINGE SUBCUT SCH ×2 (09:28→22:15)
[2021-10-27] MEDS: PANTOPRAZOLE 40 MG TABLET PO SCH (09:28)
[2021-10-27 09:45] LABS: Hematocrit 37.5 VOL% (35.7-47.0); Hemoglobin 11.6 GM/DL (12.0-16.0); Immature Granulocytes % 1.1 %; Immature Granulocytes Absolute 0.09 #; Lymphocytes # 0.5 10*3/uL (1.4-4.0); Lymphocytes % 6.5 % (21.3-54.2); Mean Corpuscular HGB Conc 30.9 GM/DL (32-36); Mean Corpuscular Volume 80.1 FL (87-102); Mean Platelet Volume 9.5 FL (9.6-12.0); Monocytes # 0.2 10*3/uL (0.11-0.8); Monocytes % 2.9 % (1.7-12.7); Neutrophils % 89.5 % (38.7-73.9); Platelet Count 228 T/CUMM (130-400); Red Blood Count 4.68 MC/CUMM (3.8-5.5); Red Cell Distribution Width 16.2 % (9.3-17.3)
[2021-10-27] MEDS ORDERED: DEXAMETHASONE INJ 10 MG in SODIUM CHLORIDE 0.9% 50 ML IV SCH (11:00)
[2021-10-27] MEDS: AZITHROMYCIN 250 MG TABLET PO SCH (12:17)
[2021-10-27] MEDS: DEXAMETHASONE INJ 10 MG in SODIUM CHLORIDE 0.9% 50 ML IV SCH (14:40)
[2021-10-28] MEDS: ALBUTEROL/IPRATROPIUM 3 ML NEB RESP TX SCH ×4 (00:45→19:25)
[2021-10-28 03:08] LABS: Arterial Base Excess iSTAT 1 MMOL/L (-2.5-2.5); Arterial O2 Saturation iSTAT 97 % (95-100); Arterial PCO2 iSTAT 37 MM HG (35-48); Arterial PO2 iSTAT 83 MM HG (80-95); Arterial Total CO2 iSTAT 26 MMO/L (23-27); Arterial pH iSTAT 7.441 (7.35-7.45)
[2021-10-28] MEDS: PIPERACILLIN/TAZOBACTAM 3,375 MG in SODIUM CHLORIDE 0.9% 100 ML IV SCH ×3 (06:02→22:31)
[2021-10-28 06:13] LABS: Basophils % 0.1 % (0.0-0.8); Hematocrit 36.4 VOL% (35.7-47.0); Hemoglobin 11.2 GM/DL (12.0-16.0); Immature Granulocytes % 0.8 %; Immature Granulocytes Absolute 0.15 #; Lymphocytes # 0.9 10*3/uL (1.4-4.0); Lymphocytes % 4.7 % (21.3-54.2); Mean Corpuscular HGB Conc 30.8 GM/DL (32-36); Mean Platelet Volume 10.5 FL (9.6-12.0); Monocytes # 0.7 10*3/uL (0.11-0.8); Monocytes % 4.1 % (1.7-12.7); Neutrophils % 90.3 % (38.7-73.9); Platelet Count 257 T/CUMM (130-400); Red Blood Count 4.55 MC/CUMM (3.8-5.5); Red Cell Distribution Width 16.5 % (9.3-17.3); White Blood Count 18.1 T/CUMM (4-12)
[2021-10-28 06:32] LABS: Calcium 8.5 MG/DL (8.5-10.1); Osmolality,Calculated 289.1 MOS/KG (273-304); Potassium 3.8 MMOL/L (3.5-5.1)
[2021-10-28 06:38] LABS: Hypochromia Slight; Lymphocytes 5 % (20-55); Microcytosis Slight; Platelet Estimate Adequate; Total Cells Counted 100
[2021-10-28] MEDS: DEXAMETHASONE INJ 10 MG in SODIUM CHLORIDE 0.9% 50 ML IV SCH (09:19)
[2021-10-28] MEDS: PANTOPRAZOLE 40 MG TABLET PO SCH (09:20)
[2021-10-28] MEDS: APIXABAN 5 MG TABLET PO SCH ×2 (09:20→21:00)
[2021-10-28] MEDS: AZITHROMYCIN 250 MG TABLET PO SCH (09:20)
[2021-10-28] MEDS: DILTIAZEM CD 240 MG CAPSULE PO SCH (09:21)
[2021-10-28] MEDS: ACETAMINOPHEN 325 MG TABLET PO PRN (21:01)
[2021-10-28 21:31] LABS: Bilirubin,Urine Negative (Negative); Blood, Urine Negative (Negative); Glucose,Urine (UA) Negative (Negative); Ketones,Urine Negative (Negative); Nitrite,Urine Negative (Negative); Protein,Urine 30 mg/dL (Negative); Urine Appearance Clear (Clear); Urine Color Yellow (Yellow); Urine Specific Gravity 1.025 (1.001-1.035); Urine Urobilinogen 0.2 eU/dL (<2.0)
[2021-10-28 21:33] LABS: Mucus,Urine Occasional /LPF (Occasional); RBC,Urine 1 /HPF (0-4); Squamous Epithelial Cell,Urine Occasional /HPF (0-10)
[2021-10-29] MEDS: ALBUTEROL/IPRATROPIUM 3 ML NEB RESP TX SCH ×4 (00:26→19:20)
[2021-10-29 03:48] LABS: Arterial Base Excess iSTAT 2 MMOL/L (-2.5-2.5); Arterial Bicarbonate iSTAT 25.8 MMOL/L (20-26); Arterial O2 Saturation iSTAT 94 % (95-100); Arterial PCO2 iSTAT 37 MM HG (35-48); Arterial PO2 iSTAT 67 MM HG (80-95); Arterial Total CO2 iSTAT 27 MMO/L (23-27)
[2021-10-29 05:33] LABS: Basophils % 0.1 % (0.0-0.8); Hematocrit 38.4 VOL% (35.7-47.0); Hemoglobin 11.5 GM/DL (12.0-16.0); Immature Granulocytes % 0.8 %; Immature Granulocytes Absolute 0.17 #; Lymphocytes # 0.8 10*3/uL (1.4-4.0); Lymphocytes % 3.6 % (21.3-54.2); Mean Corpuscular HGB Conc 29.9 GM/DL (32-36); Mean Platelet Volume 9.8 FL (9.6-12.0); Monocytes # 0.8 10*3/uL (0.11-0.8); Monocytes % 3.7 % (1.7-12.7); Neutrophils % 91.8 % (38.7-73.9); Platelet Count 269 T/CUMM (130-400); Red Blood Count 4.74 MC/CUMM (3.8-5.5); Red Cell Distribution Width 16.7 % (9.3-17.3); White Blood Count 21.6 T/CUMM (4-12)
[2021-10-29 05:48] LABS: Calcium 8.6 MG/DL (8.5-10.1); Potassium 3.5 MMOL/L (3.5-5.1)
[2021-10-29] MEDS: ACETAMINOPHEN 325 MG TABLET PO PRN ×3 (06:00→21:33)
[2021-10-29] MEDS: PIPERACILLIN/TAZOBACTAM 3,375 MG in SODIUM CHLORIDE 0.9% 100 ML IV SCH (06:02)
[2021-10-29 06:53] LABS: Lymphocytes 6 % (20-55); Total Cells Counted 100
[2021-10-29 06:54] LABS: Platelet Estimate Normal
[2021-10-29] MEDS ORDERED: FUROSEMIDE 40 MG/4 ML VIAL IV ONE (09:17)
[2021-10-29] MEDS ORDERED: DIGOXIN 0.5 MG/2 ML AMP IV ONE (09:23)
[2021-10-29] MEDS: DEXAMETHASONE INJ 10 MG in SODIUM CHLORIDE 0.9% 50 ML IV SCH (09:44)
[2021-10-29] MEDS: PANTOPRAZOLE 40 MG TABLET PO SCH (09:45)
[2021-10-29] MEDS: AZITHROMYCIN 250 MG TABLET PO SCH (09:45)
[2021-10-29] MEDS: DILTIAZEM CD 240 MG CAPSULE PO SCH (09:45)
[2021-10-29] MEDS: APIXABAN 5 MG TABLET PO SCH ×2 (09:45→20:07)
[2021-10-29] MEDS: POTASSIUM CHLORIDE 20 MEQ TABLET PO PRN ×2 (11:06→14:33)
[2021-10-29 11:08] LABS: Arterial Base Excess iSTAT 3 MMOL/L (-2.5-2.5); Arterial Bicarbonate iSTAT 26.9 MMOL/L (20-26); Arterial O2 Saturation iSTAT 96 % (95-100); Arterial PCO2 iSTAT 38 MM HG (35-48); Arterial PO2 iSTAT 75 MM HG (80-95); Arterial Total CO2 iSTAT 28 MMO/L (23-27); Arterial pH iSTAT 7.455 (7.35-7.45)
[2021-10-29] MEDS ORDERED: REMDESIVIR 200 MG in SODIUM CHLORIDE 0.9% 210 ML IV ONE (12:00)
[2021-10-29] MEDS: DIGOXIN 0.25 MG TABLET PO SCH (14:11)
[2021-10-29] MEDS: MEROPENEM 500 MG in SODIUM CHLORIDE 0.9% 100 ML IV SCH ×3 (14:14→23:18)
[2021-10-29] MEDS: FAMOTIDINE 20 MG TABLET PO SCH (20:07)
[2021-10-29] MEDS: MELATONIN 3 MG TABLET PO PRN (23:33)
[2021-10-30] MEDS: ALBUTEROL/IPRATROPIUM 3 ML NEB RESP TX SCH ×4 (00:55→18:56)
[2021-10-30 05:39] LABS: Calcium 8.5 MG/DL (8.5-10.1); Osmolality,Calculated 287.1 MOS/KG (273-304); Potassium 3.7 MMOL/L (3.5-5.1)
[2021-10-30] MEDS: MEROPENEM 500 MG in SODIUM CHLORIDE 0.9% 100 ML IV SCH ×4 (05:48→23:53)
[2021-10-30 06:18] LABS: Arterial Base Excess iSTAT 8 MMOL/L (-2.5-2.5); Arterial O2 Saturation iSTAT 94 % (95-100); Arterial PCO2 iSTAT 41 MM HG (35-48); Arterial PO2 iSTAT 63 MM HG (80-95); Arterial Total CO2 iSTAT 33 MMO/L (23-27); Arterial pH iSTAT 7.503 (7.35-7.45)
[2021-10-30 07:57] LABS: Basophils % 0.1 % (0.0-0.8); Hematocrit 39.1 VOL% (35.7-47.0); Hemoglobin 11.9 GM/DL (12.0-16.0); Immature Granulocytes % 0.9 %; Immature Granulocytes Absolute 0.17 #; Lymphocytes # 0.8 10*3/uL (1.4-4.0); Lymphocytes % 3.9 % (21.3-54.2); Mean Corpuscular HGB Conc 30.4 GM/DL (32-36); Mean Corpuscular Volume 80.8 FL (87-102); Mean Platelet Volume 10.6 FL (9.6-12.0); Monocytes % 5.1 % (1.7-12.7); Platelet Count 247 T/CUMM (130-400); Red Blood Count 4.84 MC/CUMM (3.8-5.5); Red Cell Distribution Width 16.6 % (9.3-17.3); White Blood Count 19.9 T/CUMM (4-12)
[2021-10-30] MEDS ORDERED: FUROSEMIDE 40 MG/4 ML VIAL IV ONE ×2 (08:12→14:00)
[2021-10-30] MEDS ORDERED: DILTIAZEM 25 MG/5 ML VIAL IV ONE ×3 (08:56→10:00)
[2021-10-30] MEDS: DILTIAZEM INJ 100 MG in SODIUM CHLORIDE 0.9% 100 ML IV SCH ×2 (09:05→21:43)
[2021-10-30] MEDS ORDERED: CLORAZEPATE 3.75 MG TABLET ONE (09:38)
[2021-10-30] MEDS: ZINC SULFATE 220 MG CAPSULE PO SCH (09:44)
[2021-10-30] MEDS: FAMOTIDINE 20 MG TABLET PO SCH ×2 (09:44→20:06)
[2021-10-30] MEDS: CLORAZEPATE 3.75 MG TABLET PO PRN ×2 (09:45→17:27)
[2021-10-30] MEDS: APIXABAN 5 MG TABLET PO SCH ×2 (09:45→20:06)
[2021-10-30] MEDS: AZITHROMYCIN 250 MG TABLET PO SCH (09:45)
[2021-10-30 09:47] LABS: Anisocytosis 1+; Hypochromia 2+; Lymphocytes 5 % (20-55); Total Cells Counted 100
[2021-10-30 09:48] LABS: Elliptocytes Few; Platelet Estimate Normal; Polychromasia Slight
[2021-10-30] MEDS ORDERED: GLUCAGON 1 MG VIAL IM PRN (10:11)
[2021-10-30] MEDS ORDERED: DEXTROSE 10% 250 ML BAG IV PRN (10:11)
[2021-10-30] MEDS: DILTIAZEM CD 240 MG CAPSULE PO SCH (10:21)
[2021-10-30] MEDS: BARICITINIB 2 MG TABLET PO SCH (11:24)
[2021-10-30] MEDS: REMDESIVIR 100 MG in SODIUM CHLORIDE 0.9% 100 ML IV SCH (11:24)
[2021-10-30] MEDS: INSULIN LISPRO 100 UNIT/ML SUBCUT SCH ×3 (11:53→20:39)
[2021-10-30] MEDS ORDERED: DIGOXIN 0.5 MG/2 ML AMP IV ONE (13:47)
[2021-10-30] MEDS: DIGOXIN 0.25 MG TABLET PO SCH (14:43)
[2021-10-30] MEDS: DEXAMETHASONE INJ 10 MG in SODIUM CHLORIDE 0.9% 50 ML IV SCH (14:44)
[2021-10-30] MEDS: MELATONIN 3 MG TABLET PO PRN (20:06)
[2021-10-30] MEDS: ONDANSETRON 4 MG/2 ML VIAL IV PRN (20:40)
[2021-10-30 21:49] VITALS: BP 150/87
[2021-10-31] MEDS: ALBUTEROL/IPRATROPIUM 3 ML NEB RESP TX SCH ×4 (00:38→19:08)
[2021-10-31 04:06] LABS: Arterial Base Excess iSTAT 12 MMOL/L (-2.5-2.5); Arterial O2 Saturation iSTAT 94 % (95-100); Arterial PCO2 iSTAT 44 MM HG (35-48); Arterial PO2 iSTAT 65 MM HG (80-95); Arterial Total CO2 iSTAT 37 MMO/L (23-27); Arterial pH iSTAT 7.525 (7.35-7.45)
[2021-10-31] MEDS: DILTIAZEM INJ 100 MG in SODIUM CHLORIDE 0.9% 100 ML IV SCH ×2 (04:27→12:22)
[2021-10-31] MEDS: MEROPENEM 500 MG in SODIUM CHLORIDE 0.9% 100 ML IV SCH ×4 (04:27→23:28)
[2021-10-31 06:26] LABS: Basophils % 0.2 % (0.0-0.8); Hematocrit 41.6 VOL% (35.7-47.0); Hemoglobin 12.9 GM/DL (12.0-16.0); Immature Granulocytes % 1.1 %; Immature Granulocytes Absolute 0.21 #; Lymphocytes % 5.2 % (21.3-54.2); Mean Corpuscular Volume 80.2 FL (87-102); Mean Platelet Volume 10.9 FL (9.6-12.0); Monocytes # 0.8 10*3/uL (0.11-0.8); Monocytes % 4.3 % (1.7-12.7); Neutrophils % 89.2 % (38.7-73.9); Platelet Count 181 T/CUMM (130-400); Red Blood Count 5.19 MC/CUMM (3.8-5.5); Red Cell Distribution Width 16.3 % (9.3-17.3)
[2021-10-31 06:47] LABS: Albumin 2.3 G/DL (3.4-5.0); Bilirubin,Total 0.7 MG/DL (0.20-1.00); Calcium 8.6 MG/DL (8.5-10.1); Osmolality,Calculated 283.7 MOS/KG (273-304); Total Protein 6.9 G/DL (6.4-8.2)
[2021-10-31 06:55] LABS: Ferritin 174.6 ng/mL (8-252); Free T4 (Free Thyroxine) 1.7 NG/DL (0.76-1.46); Phosphorous 3.6 MG/DL (2.5-4.9); Thyroid Stimulating Hormone 0.143 uIU/ml (0.358-3.74)
[2021-10-31] MEDS: DEXAMETHASONE 4 MG/1 ML VIAL IV SCH (08:58)
[2021-10-31] MEDS: ZINC SULFATE 220 MG CAPSULE PO SCH (08:58)
[2021-10-31] MEDS: APIXABAN 5 MG TABLET PO SCH ×2 (08:58→20:18)
[2021-10-31] MEDS: AZITHROMYCIN 250 MG TABLET PO SCH (08:58)
[2021-10-31] MEDS: VITAMIN E 400 UNIT CAPSULE PO SCH (08:59)
[2021-10-31] MEDS: INSULIN LISPRO 100 UNIT/ML SUBCUT SCH ×4 (08:59→20:19)
[2021-10-31] MEDS: CLORAZEPATE 3.75 MG TABLET PO PRN ×2 (08:59→20:18)
[2021-10-31] MEDS: BARICITINIB 2 MG TABLET PO SCH ×2 (08:59→09:17)
[2021-10-31] MEDS: FAMOTIDINE 20 MG TABLET PO SCH ×2 (08:59→20:17)
[2021-10-31] MEDS: DEXAMETHASONE INJ 10 MG in SODIUM CHLORIDE 0.9% 50 ML IV SCH (09:16)
[2021-10-31] MEDS: REMDESIVIR 100 MG in SODIUM CHLORIDE 0.9% 100 ML IV SCH (09:17)
[2021-10-31] MEDS: PROPRANOLOL 10 MG TABLET PO SCH ×2 (10:24→20:17)
[2021-10-31] MEDS: DIGOXIN 0.25 MG TABLET PO SCH (15:58)
[2021-10-31] MEDS: OLANZapine 5 MG TABLET PO SCH (20:17)
[2021-10-31] MEDS: MELATONIN 3 MG TABLET PO PRN (20:18)
[2021-10-31] MEDS: ONDANSETRON 4 MG/2 ML VIAL IV PRN (20:19)
[2021-11-01] MEDS: ALBUTEROL/IPRATROPIUM 3 ML NEB RESP TX SCH ×4 (00:10→19:52)
[2021-11-01] MEDS: CLORAZEPATE 3.75 MG TABLET PO PRN (01:44)
[2021-11-01] MEDS: MEROPENEM 500 MG in SODIUM CHLORIDE 0.9% 100 ML IV SCH ×4 (04:07→23:35)
[2021-11-01 04:17] LABS: Arterial Base Excess iSTAT 2 MMOL/L (-2.5-2.5); Arterial Bicarbonate iSTAT 26.3 MMOL/L (20-26); Arterial O2 Saturation iSTAT 92 % (95-100); Arterial PCO2 iSTAT 41 MM HG (35-48); Arterial PO2 iSTAT 63 MM HG (80-95); Arterial Total CO2 iSTAT 28 MMO/L (23-27); Arterial pH iSTAT 7.417 (7.35-7.45)
[2021-11-01 06:18] LABS: Basophils # 0.1 10*3/uL (0.0-0.2); Basophils % 0.2 % (0.0-0.8); Hematocrit 45.2 VOL% (35.7-47.0); Hemoglobin 13.9 GM/DL (12.0-16.0); Immature Granulocytes % 1.5 %; Immature Granulocytes Absolute 0.48 #; Lymphocytes # 1.1 10*3/uL (1.4-4.0); Lymphocytes % 3.2 % (21.3-54.2); Mean Corpuscular HGB Conc 30.8 GM/DL (32-36); Mean Corpuscular Volume 80.1 FL (87-102); Mean Platelet Volume 10.3 FL (9.6-12.0); Monocytes # 1.3 10*3/uL (0.11-0.8); Neutrophils % 91.1 % (38.7-73.9); Platelet Count 157 T/CUMM (130-400); Red Blood Count 5.64 MC/CUMM (3.8-5.5); Red Cell Distribution Width 16.6 % (9.3-17.3); White Blood Count 32.3 T/CUMM (4-12)
[2021-11-01 06:29] LABS: Calcium 8.5 MG/DL (8.5-10.1); Potassium 4.4 MMOL/L (3.5-5.1)
[2021-11-01 06:46] LABS: Lymphocytes 6 % (20-55); Total Cells Counted 100
[2021-11-01 06:47] LABS: Hypochromia 1+; Microcytosis 1+; Ovalocytes Slight; Platelet Estimate Adequate
[2021-11-01] MEDS ORDERED: MORPHINE 2 MG/1 ML SYRINGE ONE (06:52)
[2021-11-01] MEDS ORDERED: MORPHINE 2 MG/1 ML SYRINGE IV ONE (06:54)
[2021-11-01 07:09] LABS: Arterial Base Excess iSTAT 0 MMOL/L (-2.5-2.5); Arterial Bicarbonate iSTAT 25.4 MMOL/L (20-26); Arterial O2 Saturation iSTAT 93 % (95-100); Arterial PCO2 iSTAT 45 MM HG (35-48); Arterial PO2 iSTAT 69 MM HG (80-95); Arterial Total CO2 iSTAT 27 MMO/L (23-27); Arterial pH iSTAT 7.364 (7.35-7.45)
[2021-11-01] MEDS ORDERED: METOPROLOL TARTRATE 5 MG/5 ML VIAL IV ONE (07:09)
[2021-11-01] MEDS ORDERED: FUROSEMIDE 40 MG/4 ML VIAL ONE (07:20)
[2021-11-01] MEDS ORDERED: FUROSEMIDE 40 MG/4 ML VIAL IV ONE (07:21)
[2021-11-01] MEDS ORDERED: SUCCINYLCHOLINE 200 MG/10 ML VIAL ONE (08:23)
[2021-11-01] MEDS ORDERED: ETOMIDATE 20 MG/10 ML VIAL IV ONE (08:23)
[2021-11-01] MEDS ORDERED: MIDAZOLAM 2 MG/2 ML VIAL ONE (09:05)
[2021-11-01] MEDS: MIDAZOLAM 100 MG in SODIUM CHLORIDE 0.9% 80 ML IV PRN (09:20)
[2021-11-01] MEDS ORDERED: PHENYLEPHRINE DRIP 40 MG/250 ML PREMIX IV PRN (09:43)
[2021-11-01 09:44] LABS: ABG Base Excess -1.6 MMOL/L (-2.5-2.5); ABG HCO3 22.9 MMOL/L (20-26); ABG Oxygen Saturation 92.5 % (95-100); ABG PCO2 47.7 MM HG (35-48); ABG PH 7.325 (7.35-7.45); ABG PO2 79.5 MM HG (80-95); ABG TCO2 22.1 MMOL/L (23-27)
[2021-11-01] MEDS: fentaNYL INJ 1,250 MCG in SODIUM CHLORIDE 0.9% 225 ML IV PRN ×2 (09:45→18:40)
[2021-11-01] MEDS: APIXABAN 5 MG TABLET PO SCH ×2 (10:55→21:29)
[2021-11-01] MEDS: BARICITINIB 2 MG TABLET PO SCH (10:55)
[2021-11-01] MEDS: AZITHROMYCIN 250 MG TABLET PO SCH (10:55)
[2021-11-01] MEDS: VITAMIN E 400 UNIT CAPSULE PO SCH (10:55)
[2021-11-01] MEDS: FAMOTIDINE 20 MG TABLET PO SCH ×2 (10:55→21:29)
[2021-11-01] MEDS: METOPROLOL TARTRATE 25 MG TABLET PO SCH ×2 (10:55→21:29)
[2021-11-01] MEDS: ZINC SULFATE 220 MG CAPSULE PO SCH (10:55)
[2021-11-01] MEDS: METOPROLOL TARTRATE 5 MG/5 ML VIAL IV PRN (11:30)
[2021-11-01] MEDS: DEXAMETHASONE 4 MG/1 ML VIAL IV SCH (12:07)
[2021-11-01] MEDS: INSULIN LISPRO 100 UNIT/ML SUBCUT SCH ×3 (12:07→21:28)
[2021-11-01] MEDS: DILTIAZEM INJ 100 MG in SODIUM CHLORIDE 0.9% 100 ML IV SCH (12:07)
[2021-11-01] MEDS: REMDESIVIR 100 MG in SODIUM CHLORIDE 0.9% 100 ML IV SCH (12:09)
[2021-11-01] MEDS: DIGOXIN 0.25 MG TABLET PO SCH (12:09)
[2021-11-01] MEDS: ROCURONIUM 500 MG in SODIUM CHLORIDE 0.9% 500 ML IV PRN ×2 (12:11→23:47)
[2021-11-01] MEDS: PROPRANOLOL 10 MG TABLET PO SCH (12:13)
[2021-11-01] MEDS: DEXAMETHASONE INJ 10 MG in SODIUM CHLORIDE 0.9% 50 ML IV SCH (12:13)
[2021-11-01] MEDS ORDERED: DEXTROSE 10% 250 ML BAG IV PRN (14:43)
[2021-11-01] MEDS: OLANZapine 5 MG TABLET PO SCH (21:29)
[2021-11-01] MEDS: PHENYLEPHRINE INJ 160 MG in SODIUM CHLORIDE 0.9% 234 ML IV PRN (23:11)
[2021-11-02] MEDS: ALBUTEROL/IPRATROPIUM 3 ML NEB RESP TX SCH ×4 (00:34→19:38)
[2021-11-02] MEDS: fentaNYL INJ 1,250 MCG in SODIUM CHLORIDE 0.9% 225 ML IV PRN ×3 (02:46→17:48)
[2021-11-02 03:21] LABS: ABG Base Excess -2.7 MMOL/L (-2.5-2.5); ABG HCO3 22.2 MMOL/L (20-26); ABG TCO2 25.5 MMOL/L (23-27)
[2021-11-02 03:23] LABS: ABG PH 7.187 (7.35-7.45)
[2021-11-02 03:24] LABS: ABG PCO2 72.8 MM HG (35-48)
[2021-11-02 03:42] LABS: Calcium 7.7 MG/DL (8.5-10.1); Osmolality,Calculated 300.1 MOS/KG (273-304); Potassium 5.1 MMOL/L (3.5-5.1)
[2021-11-02 03:48] LABS: Basophils % 0.2 % (0.0-0.8); Hemoglobin 12.1 GM/DL (12.0-16.0); Immature Granulocytes % 1.4 %; Immature Granulocytes Absolute 0.36 #; Lymphocytes # 1.1 10*3/uL (1.4-4.0); Lymphocytes % 4.4 % (21.3-54.2); Mean Corpuscular HGB Conc 29.2 GM/DL (32-36); Mean Corpuscular Volume 84.9 FL (87-102); Mean Platelet Volume 11.1 FL (9.6-12.0); Monocytes # 1.3 10*3/uL (0.11-0.8); Monocytes % 5.2 % (1.7-12.7); Neutrophils % 88.8 % (38.7-73.9); Platelet Count 152 T/CUMM (130-400); Red Blood Count 4.89 MC/CUMM (3.8-5.5); Red Cell Distribution Width 16.2 % (9.3-17.3); White Blood Count 24.8 T/CUMM (4-12)
[2021-11-02 03:50] LABS: Hematocrit 41.5 VOL% (35.7-47.0)
[2021-11-02 03:55] LABS: Band Neutrophils 1 % (0-10); Lymphocytes 3 % (20-55); Total Cells Counted 100
[2021-11-02 03:56] LABS: Hypochromia 1+; Microcytosis 1+; Ovalocytes Slight
[2021-11-02 03:57] LABS: Platelet Estimate Adequate
[2021-11-02 04:07] LABS: Albumin 2.1 G/DL (3.4-5.0); Bilirubin,Direct 0.21 MG/DL (0.0-0.20); Bilirubin,Indirect 0.3 MG/DL (0.0-1.0); Bilirubin,Total 0.5 MG/DL (0.20-1.00); Total Protein 5.6 G/DL (6.4-8.2)
[2021-11-02] MEDS: MEROPENEM 500 MG in SODIUM CHLORIDE 0.9% 100 ML IV SCH ×4 (04:20→22:58)
[2021-11-02] MEDS: INSULIN LISPRO 100 UNIT/ML SUBCUT SCH ×3 (07:40→18:15)
[2021-11-02] MEDS: MIDAZOLAM 100 MG in SODIUM CHLORIDE 0.9% 80 ML IV PRN (08:44)
[2021-11-02] MEDS: DEXAMETHASONE 4 MG/1 ML VIAL IV SCH (08:47)
[2021-11-02] MEDS: DILTIAZEM INJ 100 MG in SODIUM CHLORIDE 0.9% 100 ML IV SCH (08:47)
[2021-11-02] MEDS: ZINC SULFATE 220 MG CAPSULE PO SCH (08:48)
[2021-11-02] MEDS: AZITHROMYCIN 250 MG TABLET PO SCH (08:48)
[2021-11-02] MEDS: VITAMIN E 400 UNIT CAPSULE PO SCH (08:48)
[2021-11-02] MEDS: APIXABAN 5 MG TABLET PO SCH ×2 (08:48→20:04)
[2021-11-02] MEDS: FUROSEMIDE 40 MG/4 ML VIAL IV SCH (08:48)
[2021-11-02] MEDS: FAMOTIDINE 20 MG TABLET PO SCH ×2 (08:48→20:04)
[2021-11-02] MEDS: METOPROLOL TARTRATE 25 MG TABLET PO SCH ×2 (08:48→20:04)
[2021-11-02] MEDS: DILTIAZEM 60 MG TABLET PO SCH ×2 (11:17→20:03)
[2021-11-02] MEDS: BARICITINIB 2 MG TABLET PO SCH (11:18)
[2021-11-02] MEDS: REMDESIVIR 100 MG in SODIUM CHLORIDE 0.9% 100 ML IV SCH (11:48)
[2021-11-02] MEDS: MINERAL OIL/PETROLATUM OPH OINT 3.5 GM TUBE BOTH EYES SCH ×2 (14:16→20:04)
[2021-11-02] MEDS: DIGOXIN 0.25 MG TABLET PO SCH (16:28)
[2021-11-02] MEDS: METOPROLOL TARTRATE 5 MG/5 ML VIAL IV PRN (16:48)
[2021-11-02] MEDS: ROCURONIUM 500 MG in SODIUM CHLORIDE 0.9% 500 ML IV PRN (19:21)
[2021-11-02] MEDS: OLANZapine 5 MG TABLET PO SCH (20:04)
[2021-11-03] MEDS: METOPROLOL TARTRATE 5 MG/5 ML VIAL IV PRN ×2 (00:02→05:27)
[2021-11-03] MEDS: INSULIN LISPRO 100 UNIT/ML SUBCUT SCH ×2 (00:02→05:30)
[2021-11-03] MEDS: fentaNYL INJ 1,250 MCG in SODIUM CHLORIDE 0.9% 225 ML IV PRN ×2 (00:21→07:43)
[2021-11-03] MEDS: ALBUTEROL/IPRATROPIUM 3 ML NEB RESP TX SCH ×3 (00:55→12:58)
[2021-11-03 04:18] LABS: ABG Base Excess 1.5 MMOL/L (-2.5-2.5); ABG HCO3 25.7 MMOL/L (20-26); ABG Oxygen Saturation 95.5 % (95-100); ABG PO2 85.7 MM HG (80-95); ABG TCO2 24.7 MMOL/L (23-27)
[2021-11-03 04:22] LABS: Basophils % 0.2 % (0.0-0.8); Hematocrit 39.3 VOL% (35.7-47.0); Hemoglobin 11.9 GM/DL (12.0-16.0); Immature Granulocytes % 1.5 %; Immature Granulocytes Absolute 0.34 #; Lymphocytes # 1.2 10*3/uL (1.4-4.0); Lymphocytes % 5.4 % (21.3-54.2); Mean Corpuscular HGB Conc 30.3 GM/DL (32-36); Mean Corpuscular Volume 82.4 FL (87-102); Mean Platelet Volume 11.6 FL (9.6-12.0); Monocytes # 1.8 10*3/uL (0.11-0.8); NRBC # 0.02 10*3/uL; Neutrophils % 84.9 % (38.7-73.9); Red Blood Count 4.77 MC/CUMM (3.8-5.5); White Blood Count 22.4 T/CUMM (4-12)
[2021-11-03 04:24] LABS: Platelet Count 114 T/CUMM (130-400)
[2021-11-03 04:36] LABS: Calcium 7.8 MG/DL (8.5-10.1); Osmolality,Calculated 305.8 MOS/KG (273-304); Potassium 5.3 MMOL/L (3.5-5.1)
[2021-11-03 04:43] LABS: Lymphocytes 4 % (20-55); Total Cells Counted 100
[2021-11-03 04:44] LABS: Hypochromia Slight; Microcytosis Slight
[2021-11-03 04:45] LABS: Albumin 1.9 G/DL (3.4-5.0); Bilirubin,Direct 0.28 MG/DL (0.0-0.20); Bilirubin,Indirect 0.1 MG/DL (0.0-1.0); Bilirubin,Total 0.4 MG/DL (0.20-1.00); Total Protein 5.8 G/DL (6.4-8.2)
[2021-11-03 04:47] LABS: Calcium 7.9 MG/DL (8.5-10.1); Osmolality,Calculated 303.1 MOS/KG (273-304); Phosphorous 2.4 MG/DL (2.5-4.9); Potassium 5.3 MMOL/L (3.5-5.1)
[2021-11-03] MEDS: MEROPENEM 500 MG in SODIUM CHLORIDE 0.9% 100 ML IV SCH ×2 (05:30→10:13)
[2021-11-03] MEDS ORDERED: AMIODARONE INJ 150 MG in DEXTROSE 5% 100 ML IV ONE ×2 (07:58→09:00)
[2021-11-03] MEDS: DILTIAZEM INJ 100 MG in SODIUM CHLORIDE 0.9% 100 ML IV SCH (08:14)
[2021-11-03] MEDS: DEXAMETHASONE 4 MG/1 ML VIAL IV SCH (09:00)
[2021-11-03] MEDS ORDERED: PROPRANOLOL 20 MG TABLET PO SCH (09:00)
[2021-11-03] MEDS: APIXABAN 5 MG TABLET PO SCH (09:00)
[2021-11-03] MEDS: FAMOTIDINE 20 MG TABLET PO SCH (09:01)
[2021-11-03] MEDS: VITAMIN E 400 UNIT CAPSULE PO SCH (09:01)
[2021-11-03] MEDS: FUROSEMIDE 40 MG/4 ML VIAL IV SCH (09:01)
[2021-11-03] MEDS: ZINC SULFATE 220 MG CAPSULE PO SCH (09:01)
[2021-11-03] MEDS: MINERAL OIL/PETROLATUM OPH OINT 3.5 GM TUBE BOTH EYES SCH (09:01)
[2021-11-03] MEDS: PHENYLEPHRINE INJ 160 MG in SODIUM CHLORIDE 0.9% 234 ML IV PRN (10:50)
[2021-11-03] MEDS ORDERED: SODIUM CHLORIDE 0.9% 500 ML IV ONE (11:16)
[2021-11-03 11:18] LABS: ABG Base Excess -5.3 MMOL/L (-2.5-2.5); ABG PCO2 46.3 MM HG (35-48); ABG TCO2 19.3 MMOL/L (23-27); Glucose Heart Surgery 381 MG/DL (74-106); Hematocrit Heart Surgery 40.5 PERCENT (37-47); Hemoglobin Heart Surgery 13.2 G/DL (12.0-16.0)
[2021-11-03 11:21] LABS: Potassium Heart/CVR 6.6 MMOL/L (3.5-5.1)
[2021-11-03] MEDS ORDERED: SODIUM BICARBONATE 50 MEQ/50 ML VIAL IV ONE ×2 (11:22)
[2021-11-03] MEDS ORDERED: INSULIN REGULAR 100 UNIT/ML ONE (11:32)
[2021-11-03] MEDS ORDERED: INSULIN REGULAR 100 UNIT/ML IV ONE (11:36)
[2021-11-03] MEDS ORDERED: CALCIUM CHLORIDE 1,000 MG/10 ML SYRINGE IV ONE (11:38)
[2021-11-03] MEDS: BARICITINIB 2 MG TABLET PO SCH (11:52)
[2021-11-03] MEDS ORDERED: DEXTROSE 50% 25 GM/50 ML SYRINGE IV ONE (12:00)
[2021-11-03] MEDS ORDERED: NOREPINEPHRINE 16 MG in SODIUM CHLORIDE 0.9% 234 ML IV PRN (12:49)
[2021-11-03] MEDS ORDERED: NOREPINEPHRINE 4 MG/4 ML VIAL IV ONE (12:50)
== END 2021-11-03 13:25 | disposition expired | DRG 208 ==
LOC: EDUNIT# → EDBD → N.ED 20:55 → SUATTDRO 22:15 → N.EDINP 22:15 → N.TELES 22:37 → N.TELEN 10-27 18:09 → N.CC 10-30 08:55
PROVIDERS: ADMIT Emergency Medicine; ATTEND Internal Medicine